=== PATIENT | female | born 1960 | race Caucasian/White ===

== ENCOUNTER 2019-09-23 11:47 | Emergency (ER) | payer OTHER ==
[~2019-09-23] VITALS: Ht 160 cm; Wt 54.4 kg
[~2019-09-23 11:47] MED LIST: ASPIR 8181 MG PO; CLONAZEPAM1 MG PO; COUMADIN5 MG PO; DIPHENOXYLATE-1 EAC2; LEVAQUIN500 MG PO; LOMOTIL TABLET1 EACH PO; METHADONE HCL10 MG PO; METOPROLOL SUCC25 MG PO; MORPHINE PO; MULTAQ400 MG PO; SERTRALINE HCL100 MG PO; TOPIRAMATE25 MG PO; XOPENEX HFA15 G1; Z DIVALPROEX SOD; Z.0.ADVAIR 100-501 E; Z.0.ALPRAZOLAM1 MG PO; Z.0.AMBIEN10 MG PO; Z.0.DEPAKOTE500 MG PO; Z.0.LASIX40 MG; Z.0.NORCO 10-325 T1 PO; Z.0.SPIRIVA18 MCG; Z.0.SPIRONOLACTONE25; Z.0.TRAZODONE HCL300 PO; Z.0.XANAX1 MG PO; Z.0.ZOLOFT100 MG PO; ZOLOFT50 MG PO; [UNRECOGNIZED DRUG - OTHER]
[2019-09-23 12:39] LABS: ABG HCO3 27 mmol/L (22-26); ABG PCO2 48 mmHg (35-45); ABG PH 7.35 (7.35-7.45); ABG PO2 71 mmHg (80-105); ABG TCO2 28
[2019-09-23] MEDS ORDERED: NALOXONE HCL INJ 0.4 MG/ML AMP ONE (12:39)
[2019-09-23] MEDS: NALOXONE HCL INJ 0.4 MG/ML AMP IV PRN ×2 (12:44→15:00)
[2019-09-23 12:55] LABS: BASOPHILS % 0.4 % (0.0-1.0); EOSINOPHILS % 0.4 % (0.0-6.0); HEMATOCRIT 40.9 % (34.2-44.1); HEMOGLOBIN 12.6 g/dL (12.0-16.0); LYMPHOCYTES # (AUTO) 0.6 (1.0-3.2); LYMPHOCYTES % 5.5 % (18.0-39.1); MEAN CORPUSCULAR HEMOGLOBIN 26.3 pg (28-32); MEAN CORPUSCULAR HGB CONC 30.8 g/dL (31-35); MEAN CORPUSCULAR VOLUME 85.4 fL (81-99); MONOCYTES # (AUTO) 0.3 (0.2-0.8); MONOCYTES % 2.7 % (4.4-11.3); NEUTROPHILS # (AUTO) 9.2 (2.1-6.9); NEUTROPHILS % 90.6 % (38.7-80.0); RED BLOOD COUNT 4.79 x10e6/uL (3.6-5.1); RED CELL DISTRIBUTION WIDTH 17.7 % (11.7-14.4)
[2019-09-23 13:08] LABS: PLATELET COUNT 192 x10e3/uL (140-360)
--- NOTE | 2019-09-23 13:12 | Diagnostic Imaging Report ---
EXAMINATION: CHEST SINGLE (PORTABLE) INDICATION: Altered mental status COMPARISON: None FINDINGS: LINES/TUBES:Left chest pacer. EKG leads overlie the chest. LUNGS:The lungs are well-inflated. Mild pulmonary interstitial edema. PLEURA:No pleural effusion or pneumothorax. MEDIASTINUM:The cardiomediastinal silhouette appears normal in size and shape. Atherosclerotic calcifications of the thoracic aorta. BONES/SOFT TISSUES:No acute osseous injury. Sternotomy wires in place. ABDOMEN:No free air under the diaphragm. IMPRESSION: Mild interstitial pulmonary edema. Signed by: Steff Thompson MD on 09/23/2019 1:08 PM
--- NOTE | 2019-09-23 13:30 | NUR ---
Pt currently in radiology receiving CT scan.
--- NOTE | 2019-09-23 13:43 | Diagnostic Imaging Report ---
Exam: Head CT without contrast History: Altered mental status Comparison studies: Head CT 05/30/2016 Technique: Axial images were obtained from the skull base to the vertex. Coronal and sagittal images reconstructed from the axial data. Dose modulation, iterative reconstruction, and/or weight based adjustment of the mA/kV was utilized to reduce the radiation dose to as low as reasonably achievable. Radiation dose: Total DLP: 921.4 mGy*cm. Estimated effective dose: DLP x 0.015 Intravenous contrast: None Findings: Scalp: No fracture or destructive lytic or blastic lesions. Bones: No fractures, blastic or lytic lesions. Brain sulci: Appropriate for age. Ventricles: Normal in size and configuration. No hydrocephalus. Extra-axial spaces: Unchanged small osteoma or exostosis along the inner table the right frontal calvarium without mass effect. No other mass or fluid collection. Parenchyma: No abnormal densities. No masses, acute hemorrhage, acute or chronic vascular insults. Sellar/suprasellar region: No abnormalities. Craniocervical junction: Patent foramen magnum. No Chiari one malformation. Included paranasal sinuses: Clear. Middle ear cavities and mastoids: Clear. IMPRESSION: 1. No acute abnormalities. 2. No changes from the prior head CT of 05/30/2016. Signed by: Dr. Dusty Rosas M.D. on 09/23/2019 1:39 PM
[2019-09-23 14:25] LABS: AMPHETAMINES SCREEN,URINE NEGATIVE (NEGATIVE); BENZODIAZEPINES SCREEN,URINE NEGATIVE (NEGATIVE); PHENCYCLIDINE SCREEN,URINE NEGATIVE (NEGATIVE)
--- NOTE | 2019-09-23 14:44 | Emergency Department Note ---
History of Present Illnes History of Present Illness Chief Complaint: Neurological History of Present Illness This is a 59 year old female arrived to the ED for AMS, pt unable to provide history. Patient noted to fentanyl patches all over her body. Chief Complaint Comment PATIENT SENT OVER BY DR. PADILLA. SAYS SHE HAS BEEN FATIGUE AND PASSING OUT. STATES SHE IS WEARING HER FENTANYL PATCH IS TAKING MORE DILAUDID THEN PRESCRIBED BUT UNSURE HOW MUCH MORE. PATIENT WITH AMS, DIFFICULT TO AROUSE, EYES CLOSED. FALLS ASLEEP MID SENTENCE. SHE WAS ABLE TO STAND AND TRANSFER FROM WHEELCHAIR TO BED Historian: Patient Arrival Mode: Car Additional Treatment [employer]: NONE Onset (how long ago): unknown Onset quality: unable to specify Progression: unchanged Chronicity: recurrent Relieving factors: none Past Medical/Family History Physician Review I have reviewed the patient's past medical and family history. Any updates have been documented here. Past Medical History Recent Fever: No Clinical Suspicion of Infectio: No New/Unexplained Change in Ment: No Past Medical History: COPD Other Medical History: MITRAL STENOSIS Past Surgical History: Pacer/AICD Other Surgery: KNEES, CARPAL TUNNEL LEFT KNEE REVISION Social History Smoking Cessation: Current every day smoker Alcohol Use: Social Review of Systems ROS Narrative Unable to obtain ROS: altered mental status Review of Systems Constitutional: Reports no symptoms EENTM: Reports no symptoms Cardiovascular: Reports no symptoms Respiratory: Reports no symptoms Gastrointestinal: Reports no symptoms Genitourinary: Reports no symptoms Musculoskeletal: Reports no symptoms Integumentary: Reports no symptoms Neurological: Reports as per HPI Psychological: Reports no symptoms Endocrine: Reports no symptoms Hematological/Lymphatic: Reports no symptoms Review of other systems: All other systems negative Physical Exam Related Data Allergies: Coded Allergies: Penicillins (Verified Allergy, 08/18/10) Triage Vital Signs Vital Signs Date Time Temp Pulse Resp B/P (MAP) Pulse Ox O2 Delivery O2 Flow Rate FiO2 09/23/19 11:58 98.2 79 16 133/88 98 Room Air Vital signs reviewed: Yes Physical Exam CONSTITUTIONAL Constitutional: Present ill appearing HENT HENT: Present normocephalic, Present atraumatic, Present oropharynx clear/moist, Present nose normal HENT L/R: Present left ext ear normal, Present right ext ear normal EYES Eyes: Reports PERRL, Reports conjunctivae normal NECK Neck: Present ROM normal PULMONARY Pulmonary: Present effort normal, Present breath sounds normal CARDIOVASCULAR Cardiovascular: Present regular rhythm, Present heart sounds normal, Present capillary refill normal, Present normal rate GASTROINTESTINAL Abdominal: Present soft, Present nontender, Present bowel sounds normal GENITOURINARY Genitourinary: Present exam deferred SKIN Skin: Present warm, Present dry MUSCULOSKELETAL Musculoskeletal: Present ROM normal NEUROLOGICAL Neurological: Present alert, Present no gross motor or sensory deficits PSYCHOLOGICAL Psychological: Absent behavior normal Results Laboratory Result Diagram: 09/23/19 1227 Laboratory Laboratory Tests Test 09/23/19 12:27 09/23/19 12:23 White Blood Count 10.19 x10e3/uL (4.8-10.8) Red Blood Count 4.79 x10e6/uL (3.6-5.1) Hemoglobin 12.6 g/dL (12.0-16.0) Hematocrit 40.9 % (34.2-44.1) Mean Corpuscular Volume 85.4 fL (81-99) Mean Corpuscular Hemoglobin 26.3 pg (28-32) Mean Corpuscular Hemoglobin Concent 30.8 g/dL (31-35) Red Cell Distribution Width 17.7 % (11.7-14.4) Platelet Count 192 x10e3/uL (140-360) Neutrophils (%) (Auto) 90.6 % (38.7-80.0) Lymphocytes (%) (Auto) 5.5 % (18.0-39.1) Monocytes (%) (Auto) 2.7 % (4.4-11.3) Eosinophils (%) (Auto) 0.4 % (0.0-6.0) Basophils (%) (Auto) 0.4 % (0.0-1.0) Neutrophils # (Auto) 9.2 (2.1-6.9) Lymphocytes # (Auto) 0.6 (1.0-3.2) Monocytes # (Auto) 0.3 (0.2-0.8) Eosinophils # (Auto) 0.0 (0.0-0.4) Basophils # (Auto) 0.0 (0.0-0.1) Absolute Immature Granulocyte (auto 0.04 x10e3/uL (0-0.1) Arterial Blood pH 7.35 (7.35-7.45) Arterial Blood Partial Pressure CO2 48 mmHg (35-45) Arterial Blood Partial Pressure O2 71 mmHg (80-105) Arterial Blood HCO3 27 mmol/L (22-26) Arterial Blood Total CO2 28 Arterial Blood Oxygen Saturation 93.0 % (95-98) Arterial Blood Base Excess 1.0 mmol/L (-2 - 3) FiO2 21 % Lab results reviewed: Yes Laboratory comments Laboratory Tests Test 09/23/19 13:58 09/23/19 12:27 09/23/19 12:23 Urine Opiates Screen Positive (NEGATIVE) Urine Methadone Screen Negative (NEGATIVE) Urine Barbiturates Screen Negative (NEGATIVE) Urine Phencyclidine Screen Negative (NEGATIVE) Urine Amphetamines Screen Negative (NEGATIVE) Urine Methamphetamines Screen Negative (NEGATIVE) Urine Benzodiazepines Screen Negative (NEGATIVE) Urine Cocaine Screen Negative (NEGATIVE) Urine Cannabinoids Screen Negative (NEGATIVE) White Blood Count 10.19 x10e3/uL (4.8-10.8) Red Blood Count 4.79 x10e6/uL (3.6-5.1) Hemoglobin 12.6 g/dL (12.0-16.0) Hematocrit 40.9 % (34.2-44.1) Mean Corpuscular Volume 85.4 fL (81-99) Mean Corpuscular Hemoglobin 26.3 pg (28-32) Mean Corpuscular Hemoglobin Concent 30.8 g/dL (31-35) Red Cell Distribution Width 17.7 % (11.7-14.4) Platelet Count 192 x10e3/uL (140-360) Neutrophils (%) (Auto) 90.6 % (38.7-80.0) Lymphocytes (%) (Auto) 5.5 % (18.0-39.1) Monocytes (%) (Auto) 2.7 % (4.4-11.3) Eosinophils (%) (Auto) 0.4 % (0.0-6.0) Basophils (%) (Auto) 0.4 % (0.0-1.0) Neutrophils # (Auto) 9.2 (2.1-6.9) Lymphocytes # (Auto) 0.6 (1.0-3.2) Monocytes # (Auto) 0.3 (0.2-0.8) Eosinophils # (Auto) 0.0 (0.0-0.4) Basophils # (Auto) 0.0 (0.0-0.1) Absolute Immature Granulocyte (auto 0.04 x10e3/uL (0-0.1) Arterial Blood pH 7.35 (7.35-7.45) Arterial Blood Partial Pressure CO2 48 mmHg (35-45) Arterial Blood Partial Pressure O2 71 mmHg (80-105) Arterial Blood HCO3 27 mmol/L (22-26) Arterial Blood Total CO2 28 Arterial Blood Oxygen Saturation 93.0 % (95-98) Arterial Blood Base Excess 1.0 mmol/L (-2 - 3) FiO2 21 % Imaging Imaging results reviewed: Yes Assessment & Plan Medical Decision Making MDM 59-year-old female arrived to the ED altered, pinpoint pupils noted. Narcan given twice. Patient responded immediately after giving Narcan. Patient noted to give 120 tablets of Dilaudid filled monthly, admits to taking 12-15 a day. Patient also on 10 fentanyl patches monthly and had multiple patches on her body on arrival. Assessment & Plan Final Impression: (1) Narcotic overdose Depart Disposition: HOME, SELF-CARE Last Vital Signs Date Time Temp Pulse Resp B/P (MAP) Pulse Ox O2 Delivery O2 Flow Rate FiO2 09/23/19 12:39 23 153/98 99 Room Air 09/23/19 11:58 98.2 79 Home Meds Reported Medications Levofloxacin (LEVAQUIN) 500 Mg Tablet, 500 MG PO DAILY, TAB 06/01/16 Topiramate (TOPIRAMATE) 25 Mg Tablet, 25 MG PO DAILY, #30 TAB 05/30/16 Diphenoxylate Hcl/Atropine (LOMOTIL TABLET) 1 Each Tablet, 2 TAB PO QID PRN for DIARRHEA 05/30/16 Metoprolol Succinate (METOPROLOL SUCCINATE) 25 Mg Tab.er.24h, 25 MG PO DAILY 05/30/16 Aspirin (ASPIR 81) 81 Mg Tablet.dr, 81 MG PO DAILY 05/30/16 Sertraline Hcl (SERTRALINE HCL) 100 Mg Tablet, 200 MG PO DAILY, TAB 05/30/16 Dronedarone Hydrochloride (MULTAQ) 400 Mg Tablet, 400 MG PO DAILY, #60 TAB 05/30/16 Clonazepam (CLONAZEPAM) 1 Mg Tablet, 2 MG PO TID, TAB 05/30/16 Warfarin Sodium (COUMADIN) 5 Mg Tablet, 5 MG PO 1700, #7 TAB 05/30/16 Methadone Hcl (METHADONE HCL) 10 Mg Tablet, 20 MG PO Q8HR 4/7/17 Trazodone Hcl (Trazodone Hcl) 300 Mg Tablet, 1 TAB PO QHS 08/18/10 Medications in the ED Naloxone HCl 0.4 mg STK-MED ONCE .ROUTE ; Start 09/23/19 at 12:39; Stop 09/23/19 at 12:33; Status DC Naloxone HCl 0.4 mg PRN PRN IV OVERSEDATION Last administered on 09/23/19at 12:44; Admin Dose 0.4 MG; Start 09/23/19 at 13:00; Stop 10/23/19 at 12:59 JOEL CHANEY DO Sep 23, 2019 14:44
[2019-09-23] MEDS ORDERED: NALOXONE HCL INJ 0.4 MG/ML AMP IV PRN (15:00)
--- NOTE | 2019-09-23 16:30 | NUR ---
redraw on initial chemistry peformed and sent to lab.
[2019-09-23 16:51] LABS: ALANINE AMINOTRANSFERASE 19 IU/L (0-55); ALBUMIN 3.4 g/dL (3.5-5.0); ALBUMIN/GLOBULIN RATIO 1.1 (0.8-2.0); ALKALINE PHOSPHATASE 99 IU/L (40-150); BLOOD UREA NITROGEN 8 mg/dL (7-26); BUN/CREATININE RATIO 13 (6-25); CALCIUM 8.8 mg/dL (8.4-10.2); CARBON DIOXIDE 25 mmol/L (22-29); CHLORIDE 103 mmol/L (98-107); CREATINE KINASE 77 IU/L (29-168); CREATININE, SERUM 0.61 mg/dL (0.57-1.11); EST GLOMERULAR FILTRATION RATE > 60 ML/MIN (60-); GLUCOSE 107 mg/dL (74-118); SODIUM 139 mmol/L (136-145)
[2019-09-23 17:35] LABS: SALICYLATE < 5.0 mg/dL (0-30)
--- OUTSIDE RECORDS SUMMARY | 2019-09-23 21:34 | XMS REPORT | Summary of Care ---
Author Author [facility] Outpatient Imaging - [facility] Organization [facility] Outpatient Imaging - [facility] Address Unknown Phone Unavailable Encounter HQ Encntr_[email or web address](FIN) [id number] Date(s): 06/15/15 - 06/15/15 [facility] Outpatient Imaging - [address] [id number] [phone] Discharge Disposition: Home Attending Physician: Maria Luz Moya MD Vital Signs No data available for this section Problem List No data available for this section Allergies, Adverse Reactions, Alerts No data available for this section Medications No data available for this section Results No data available for this section Immunizations No data available for this section Procedures No data available for this section Social History No data available for this section Assessment and Plan No data available for this section
--- OUTSIDE RECORDS SUMMARY | 2019-09-23 21:34 | XMS REPORT | Clinical Summary ---
Author Author [facility] Address Unknown Phone Unavailable Care Team Providers Care Production Supervisor Off Shift Name Role Phone Reji Hassan MD PCP Allergies Comments Active Allergy Reactions Severity Noted Date Enoxaparin Hives 11/12/2017 Pregabalin Anaphylaxis High 05/05/2019 Pt stated she felt like she lost her mind and had lost her memory for a short time along with hallucinations Methadone Hallucination High 05/05/2019 s Pass out Penicillins 12/18/2015 Pt stated she was told not to take per her Cariologist Acetaminophen Other (See 05/05/2019 Comments) Medications End Date Status Medication Sig Dispensed Refills Start Date Active dronedarone (MULTAQ) 400 Take 400 mg 0 mg tablet by mouth daily. Active traZODone (DESYREL) 100 Take 150 mg 0 MG tablet by mouth nightly. Active fentaNYL (DURAGESIC) 50 Place 1 patch 0 mcg/hr on the skin every third day. Active aspirin (ECOTRIN) 81 MG Take 81 mg by 0 enteric coated tablet mouth daily. Active warfarin (COUMADIN) 7.5 Take 7.5 mg 0 MG tablet by mouth daily. On HOLD since 11/04/17, because Pt. Is having surgery on 11/10/17. Active busPIRone (BUSPAR) 15 MG Take 15 mg by 0 tablet mouth 3 (three) times a day. Active metoprolol tartrate Take 12.5 mg 0 (LOPRESSOR) 25 mg tablet by mouth daily. Active baclofen (LIORESAL) 10 MG Take 10 mg by 0 tablet mouth 3 (three) times a day. Active spironolactone Take 25 mg by 0 (ALDACTONE) 25 MG tablet mouth daily. Active sertraline (ZOLOFT) 100 Take 100 mg 0 MG tablet by mouth daily. Active hydromorPHONE (DILAUDID) Take 2 mg by 0 2 MG tabletIndications: mouth every 4 acute pain (four) hours as needed .acute pain. Active eszopiclone (LUNESTA Take 4 mg by 0 ORAL) mouth nightly. Active ondansetron (ZOFRAN) 4 MG Take 4 mg by 0 tablet mouth every 8 (eight) hours as needed for nausea or vomiting. 04/12/2019 Discontinued HYDROcodone-acetaminophen Take 1 tablet 0 (NORCO 10-325) 10-325 mg by mouth per tablet every 6 (six) hours as needed for moderate pain. 04/12/2019 Discontinued topiramate (TOPAMAX) 25 Take 25 mg by 0 MG tablet mouth 4 (four) times a day. 04/12/2019 Discontinued cholestyramine (QUESTRAN) Take 1 packet 0 4 gram packet by mouth as needed. 04/12/2019 Discontinued mirtazapine (REMERON) 30 Take 30 mg by 0 MG tablet mouth nightly. 04/12/2019 Discontinued DULoxetine (CYMBALTA) 60 Take 60 mg by 0 MG capsule mouth 2 (two) times a day. Active Problems Problem Noted Date Instability of internal left knee prosthesis 020 S/P MVR (mitral valve replacement) 11/10/2017 S/P Maze operation for atrial fibrillation 8 Pulmonary hypertension due to mitral valve disease an d COPD 11/10/2017 COPD, mild 11/10/2017 History of chronic back pain 11/10/2017 Smokes 1 pack of cigarettes per day 11/10/2017 Shortness of breath 11/09/2017 SSS (sick sinus syndrome) 10/08/2015 Encounters Care Team Description Date Type Specialty Marisa Nix MD Berry, Madie Yao MD 05/05/2019 Anesthesia Orthopedic Surgery Event Angela Burgos MD LEFT TKA REVISION 2 COMPONENTS, PARTIAL EXCISION PROXIMAL TIBIA, COMPLEX WOUND CLOSURE 05/05/2019 Surgery Orthopedic Surgery Angela Burgos MD Instability of internal left knee prosth esis, initial encounter (HCC); Presence of left artificial knee joint; Hypertrophic scar 05/05/2019 Hospital Orthopedic Surgery - Encounter 05/06/2019 05/05/2019 Travel Angela Burgos MD Preop testing (Primary Dx) 04/12/2019 Pre-Admit Pre-Admission Testi ng Testing Appointment Bonnie Wong 10/18/2018 Telephone Ophthalmology after 09/22/2018 Family History Medical History Relation Name Comments Stroke Brother Stroke Father Heart disease Mother Stroke Mother Relation Name Status Comments Brother Father Mother Social History Date Tobacco Use Types Packs/Day Years Used Current Every Day Smoker Cigarettes 1 45 Smokeless Tobacco: Never Used Tobacco Cessation: Ready to Quit: Yes; C ounseling Given: Yes Drinks/Week oz/Week Comments Alcohol Use No Sex Assigned at Date Recorded Not on file Industry Job Start Date Occupation Not on file Not on file Not on file Travel End Travel History Travel Start No recent travel history available. Last Filed Vital Signs Reading Time Taken Comments Vital Sign 108/59 05/06/2019 11:28 AM CDT Blood Pressure 92 05/06/2019 11:28 AM CDT Pulse 36.1 C (97 F) 05/06/2019 11:28 AM CDT Temperature 17 05/06/2019 11:28 AM CDT Respiratory Rate 97% 05/06/2019 11:28 AM CDT Oxygen Saturation - - Inhaled Oxygen Concentration 50.2 kg (110 lb 11.2 oz) 05/05/2019 8:38 AM CDT Weight 160 cm (5' 3") 05/05/2019 8:38 AM CDT Height 19.61 05/05/2019 8:38 AM CDT Body Mass Index Plan of Treatment Health Maintenance Due Date Last Done Comments CERVICAL CANCER SCREENING 08/09/1979 BREAST CANCER SCREENING 2008 COLONOSCOPY SCREENING 2008 SHINGLES VACCINES (#1) 2008 INFLUENZA VACCINE 09/24/2019 Implants Device Identifier Shelf Expiration Date Model / Serial / L ot Implanted Type Area Manufactur er 07/23/2020 [id number] / / [id number] Cement Bone 40gr Smartset Mv Bone Screw N/A: N/A D EPUY Endurance - [id number] ORTHO-KNEE Implanted: 05/05/2019 at [facility] (Quantity not on file) 07/23/2020 [id number] / / [id number] Cement Bone 40gr Smartset Mv Bone Screw N/A: N/A D EPUY Endurance - [id number] ORTHO-KNEE Implanted: 05/05/2019 at [facility] (Quantity not on file) 09/10/2019 [id number] / / Lead Pace Dorian Mycrdl Unipol Tmpry Cardiac N/A: N/A MEDTRONIC Streamline - [id number] Pacing [place] - Implanted: Qty: 2 on 11/10/2017 by Leads or CAR aKmar Gutierrez MD at [facility] or [facility] 06/18/2020 E100 25M 00 / [id number] / [id number] Valve Mitral Stntd Tiss Annls W/ Cardiovasc N/A: N/A ST KALI Linx Ac Tech 25mm Epic - ular STRUCTURAL [id number] - [id number] Implants HE ART Implanted: Qty: 1 on 11/10/2017 by Kamar Díaz MD at [facility] 06/22/2017 350 [id number] / [id number] / [id number] Setrox S Steroid-Eluting Bipolar IPM N/A: N/A BIOTRONIK, Implantable Endocardial Bradycardia IMPLANT IN C. Lead With Active Fixation DEVICES Electrically Active [place] 1.8mm Connector Is-1 Straight Ring Electrode Insulation Silicon Rubber 6.6fr 6.7fr Steroid [place] Setrox S 53 10mm 45/53/60cm - [id number] - [id number] Implanted: Qty: 1 on 10/08/2015 by Reji Hassan MD at [facility] 06/22/2017 350 974 / [id number] / [id number] Setrox S Steroid-Eluting Bipolar IPM N/A: N/A BIOTRONIK, Implantable Endocardial Bradycardia IMPLANT IN C. Lead With Active Fixation DEVICES Electrically Active [place] 1.8mm Connector Is-1 Straight Ring Electrode Insulation Silicon Rubber 6.6fr 6.7fr Steroid [place] Setrox S 53 10mm 45/53/60cm - [id number] - [id number] Implanted: Qty: 1 on 10/08/2015 by Reji Hassan MD at [facility] 12/23/2016 [id number] / [id number] / [id number] Jonh Goss With Cls With IPM N/A: N/A BIOTRONIK, Home Monitoring - [id number] - [employer] [id number] Implanted: Qty: 1 on 10/08/2015 by Reji Hassan MD at [facility] / / [facility] - [id number] IPM N/A: N/A MEDTRON IC Implanted: Qty: 1 on 10/08/2015 by ALTHIA Mo HUYNH Thomas E., MD at [facility] PATIENT IN C. BILLABLE 7 / / [facility] - [id number] IPM N/A: N/A MEDTRON IC Implanted: Qty: 1 on 10/08/2015 by tagUinMo Thomas E., MD at [facility] PATIENT IN C. BILLABLE 11/23/2023 [id number] / / [id number] Plate Tib Rotng Hinge Nmodlr Sz 2 Knee Joint N/A: N/A [employer] Nexgen - [id number] Implants Implanted: Qty: 1 on 05/05/2019 by Angela Burgos MD at [facility] 06/23/2023 [id number] / / [id number] Component Feml Left Rhk Size D Knee Joint N/A: N/A [employer] Nexgen - [id number] Implants Implanted: Qty: 1 on 05/05/2019 by Angela Burgos MD at [facility] 08/22/2028 [id number] / / [id number] Augment Fml Block Distl P-Coat Sz D Knee Joint N/A: N/A [employer] Tivn Pmma 5mm Strl - [id number] Implants Implanted: Qty: 1 on 05/05/2019 by Angela Burgos MD at [facility] 12/23/2028 [id number] / / [id number] Augment Fml Block Distl P-Coat Sz D Knee Joint N/A: N/A [employer] Tivn Pmma 5mm Strl - [id number] Implants Implanted: Qty: 1 on 05/05/2019 by Angela Burgos MD at [facility] 10/24/2027 [id number] / / [id number] Extension Stem Str [id number] (30mm) Knee Joint N/A: N/A [employer] Nexgen - [id number] Implants Implanted: Qty: 1 on 05/05/2019 by Angela Burgos MD at [facility] 09/22/2022 [id number] / / [id number] Surface Artclr Rhk Sz D 20mm Strl Knee Joint N/A: N/A [employer] Nexgen - [id number] Implants Implanted: Qty: 1 on 05/05/2019 by Angela Burgos MD at [facility] 04/14/2022 [id number] / / Clip Ligtng Weck Hemoclip Plus W/ Medical N/A: N/A TELEFLEX Tape Ti Lg - [id number] Clips for MEDICAL Implanted: Qty: 1 on 11/10/2017 by Internal Kamar Díaz MD at [facility] Pacemaker Pacemaker Description:Biotronic Was implanted in 201507/20/2022 [id number] / / [id number] [facility] Vasclr Ptfe 1.2x10cm Vascular N/A: N/A BARD 1.65mm - [id number] Graft PERIPHERAL Implanted: 11/10/2017 at [facility] (Quantity not on file) Procedures Comments Procedure Name Priority Date/Time Associated Diag nosis ESTIMATED GFR Routine 05/06/2019 5:00 AM CDT PROTHROMBIN TIME WITH INR Routine 05/06/2019 5:00 AM CDT BASIC METABOLIC PANEL Routine 05/06/2019 5:00 AM CDT HC COMPLETE BLD COUNT Routine 05/06/2019 W/AUTO DIFF 5:00 AM CDT POC GLUCOSE Routine 05/05/2019 1:29 PM CDT XR KNEE 1 OR 2 VW LEFT Routine 05/05/2019 1:20 PM CDT SURGICAL PATHOLOGY Routine 05/05/2019 REQUEST 12:[address] AN ELECTIVE Routine 05/05/2019 ENDOTRACHEAL AIRWAY 10:38 AM CDT ARTERIAL LINE Routine 05/05/2019 10:28 AM CDT REVISION, ARTHROPLASTY, 05/05/2019 Instability o f internal KNEE 10:12 AM CDT left knee prosthesi s, initial encounter (HCC) Presence of left artificial knee joint Hypertrophic scar Case Notes TF ~ 1000, REQ 0730 START, EST 2HRS, @ 0947 VIA ACTIVE FAX R/S FROM 04/07 TO 04/14-TW, @ 1402 SANTOS R/S FROM CANCELLATI ON 04/27/19TW Special Needs TF ~ 1000, REQ 0730 START, EST 2HRS, REGULAR BED, DR BURGOS OR SKY RETRACTORS , SALVADOR RHK, #1 PDS X 2, #2 QUILL X 1, 2/0 MONOCRYL CP 1 X 3, 3/0 MONOCRYL PS1 X 1, LARGE THICK COTTON ROLL, DOUBLE LONG JUAN MIGUEL BANDAGE, KNEE IMMOBILIZE R, ACL (SKY) SAW BLADE , BIG WIDE SAW BLADE TYPE AND SCREEN STAT 05/05/2019 8:32 AM CDT PARTIAL THROMBOPLASTIN STAT 05/05/2019 TIME (PTT) 8:32 AM CDT PROTHROMBIN TIME WITH INR STAT 05/05/2019 8:32 AM CDT POC GLUCOSE Routine 05/05/2019 8:02 AM CDT URINE CULTURE Routine 04/12/2019 11:24 AM SOLID PROPELLANT PROCESSOR ECG PRE/POST OP Routine 04/12/2019 Preop testing 11:07 AM SOLID PROPELLANT PROCESSOR ESTIMATED GFR Routine 04/12/2019 10:58 AM SOLID PROPELLANT PROCESSOR HC COMPLETE BLD COUNT Routine 04/12/2019 Preop te sting W/AUTO DIFF 10:58 AM SOLID PROPELLANT PROCESSOR COMPREHENSIVE METABOLIC Routine 04/12/2019 Preop testing PANEL 10:58 AM SOLID PROPELLANT PROCESSOR HEMOGLOBIN A1C Routine 04/12/2019 Preop testing 10:58 AM SOLID PROPELLANT PROCESSOR TYPE AND SCREEN Routine 04/12/2019 Preop testing 10:58 AM SOLID PROPELLANT PROCESSOR URINALYSIS SCREEN AND Routine 04/12/2019 Preop te sting MICROSCOPY, WITH REFLEX 10:58 AM SOLID PROPELLANT PROCESSOR TO CULTURE PARTIAL THROMBOPLASTIN Routine 04/12/2019 Preop t esting TIME (PTT) 10:58 AM SOLID PROPELLANT PROCESSOR PROTHROMBIN TIME WITH INR Routine 04/12/2019 Preo p testing 10:58 AM SOLID PROPELLANT PROCESSOR MRSA SCREEN CULTURE Routine 04/12/2019 Preop test ing 10:58 AM SOLID PROPELLANT PROCESSOR after 09/22/2018 Results * Estimated GFR (05/06/2019 5:00 AM CDT) Only the most recent of 2 results within the time period is included. [facility] [address] Estimated GFR >=90 mL/min/1.73 m2 [place] Comment: [facility] [place] Interpretation G1 >=90 Normal or high G2 60-89 Mildly decreased G3a 45-59 Mildly to moderately decreased G3b 30-44 Moderately to severely decreased G4 15-29 Severely decreased G5 <15 Kidney failure The eGFR was calculated using the Chronic Kidney Disease Epidemiology Collaboration (CKD-EPI) equation. Interpretation is based on recommendations of the National Kidney Foundation-Kidney Disease Outcomes Quality Initiative (NKF-KDOQI) published in 2014. Specimen Plasma specimen Performing Organization Address City/[facility] Ph one Number [facility] DEPARTMENT OF [address] [place] [address] PATHOLOGY AND [facility] MEDICINE [address] * Prothrombin time with INR (05/06/2019 5:00 AM CDT) Only the most recent of 3 results within the time period is included. [facility] [address] Prothrombin 15.1 (H) 11.5 - 14.5 sec [facility] INR 1.2 [place] Comment: [employer] The International Normalized HOSPITAL Ratio (INR) is a therapeutic monitoring tool for patients who are stable on oral anticoagulant therapy. An INR of 2.0-3.0 is suggested for deep vein thrombosis/pulmonary embolism. Specimen Blood Performing Organization Address City/[facility] Ph one Number [facility] DEPARTMENT OF [address] [place] [address] PATHOLOGY AND [facility] MEDICINE [address] * CBC with platelet and differential (05/06/2019 5:00 AM CDT) Only the most recent of 2 results within the time period is included. WBC 10.04 4.50 - 11.00 k/uL [facility] RBC 3.64 (L) 4.20 - 5.50 m/uL [facility] HGB 9.9 (L) 12.0 - 16.0 g/dL [facility] HCT 31.7 (L) 37.0 - 47.0 % [facility] MCV 87.1 82.0 - 100.0 fL [facility] MCH 27.2 27.0 - 34.0 pg [facility] MCHC 31.2 31.0 - 37.0 g/dL [facility] RDW - SD 54.4 37.0 - 55.0 fL [facility] MPV 10.4 8.8 - 13.2 fL [facility] Platelet count 187 150 - 400 k/uL [facility] Nucleated RBC 0.00 /100 WBC [facility] Neutrophils 73.6 (H) 39.0 - 69.0 % [facility] Lymphocytes 13.0 (L) 25.0 - 45.0 % [facility] Monocytes 11.6 (H) 0.0 - 10.0 % [facility] Eosinophils 0.8 0.0 - 5.0 % [facility] Basophils 0.7 0.0 - 1.0 % [facility] Immature 0.3Comment: "Immature 0.0 - 1.0 % [place] granulocytes granulocytes" (promyelocytes, METHOD IST myelocytes, metamyelocytes) HOSPITAL Specimen Blood Performing Organization Address City/State/[place] Ph one Number [facility] DEPARTMENT OF [address] [place] [address] PATHOLOGY AND GENOMIC MEDICINE [address] * Basic metabolic panel (05/06/2019 5:00 AM CDT) Sodium 136 135 - 148 mEq/L [facility] Potassium 3.5 3.5 - 5.0 mEq/L [facility] Chloride 100 98 - 112 mEq/L [facility] CO2 22 (L) 24 - 31 mEq/L [facility] Anion gap 14@ANIO 7 - 15 mEq/L [facility] BUN 6 (L) 8 - 23 mg/dL [facility] Creatinine 0.48 (L) 0.50 - 0.90 mg/dL [facility] Glucose 119 (H) 65 - 99 mg/dL [facility] Calcium 8.8 8.8 - 10.2 mg/dL [facility] Specimen Plasma specimen Performing Organization Address City/State/Zipcode Ph one Number [facility] DEPARTMENT OF [address] [place] [address] PATHOLOGY AND GENOMIC MEDICINE [address] * POC glucose (05/05/2019 1:29 PM CDT) Only the most recent of 2 results within the time period is included. POC glucose 153 (H) 65 - 99 mg/dL [place] Comment: [employer] Executive Administrative Assistant Name: [facility] Device ID: [id number] Chartable: [facility] Notified RN Specimen Performing Organization Address City/[facility] Ph one Number [facility] DEPARTMENT OF [address] [place] [address] PATHOLOGY AND GENOMIC MEDICINE [address] * XR Knee 1 Or 2 Vw Left (05/05/2019 1:20 PM CDT) Specimen Narrative Performed At EXAMINATION: XR KNEE 1 OR 2 VW LEFT [facility] CLINICAL HISTORY: Knee replaced asy mptomatic follow up, total knee arthoplasty COMPARISON: None. IMPRESSION: There is no evidence of left knee fract ure, dislocation, or joint effusion. Bones are osteopenic. Total knee re placement is seen. Subcutaneous gas is present. [id number] Procedure Note Hm Interface, Radiology Results Incoming - 05/05/2019 2:03 PM CDT EXAMINATION: XR KNEE 1 OR 2 VW LEFT CLINICAL HISTORY: Knee replaced asymptomatic follow up, total knee arthoplasty COMPARISON: None. IMPRESSION: There is no evidence of left knee fracture, dislocation, or joint effusion. Bones are osteopenic. Total knee replacement is seen. Subcutaneous gas is present. [id number] Performing Organization Address City/[facility] Ph one Number [facility] [address] [place] [address] * Surgical pathology request (05/05/2019 12:51 PM CDT) [facility] DEPARTMENT OF PATHOLOGY AND GENOMIC MEDICINE Surgical See link below for PDF Lab [facility] DEPART [facility] pathology Report OF PATHOLOGY report AND GENOMIC MEDICINE Result status This is Final Report for [facility] DEPARTUT NT [id number] OF PATHOLOGY AND GENOMIC MEDICINE Specimen Performing Organization Address City/State/Zipcode Ph one Number [facility] DEPARTMENT OF [address] [place] [address] PATHOLOGY AND GENOMIC MEDICINE * Airway (05/05/2019 10:38 AM CDT) Narrative Performed At Jerald Calderon CRNA 10:39 AM Airway Date/Time: 05/05/2019 10:21 AM Performed by: Jerald Calderon CRN A Authorized by: Marisa Nix M D Location: OR Urgency: Elective Difficult Airway: No Anesthesiologist: Marisa Nix MD Resident/CATHETER BUILDER/AA: Jerald Calderon Performed by: resident/CATHETER BUILDER/AA Preoxygenated with 100% O2: Yes Mask Ventilation: Assisted mask Final Airway Type: Endotracheal airwa y Final Endotracheal Airway: ETT Cuffed: Yes Technique Used: Direct laryngoscopy Devices/Methods Used in Placement: In tubating stylet Insertion Site: Oral Blade Type: Barron Laryngoscope Blade/Videolaryngoscope Bl yohana Size: 2 ETT Size (mm): 7.0 Cuff at minimum occlusion pressure: Yes Measured from: Lips ETT to Lips (cm): 19 Placement Verified by: CO2 detection, d irect visualization and equal breath sounds Laryngoscopic view: Grade I - full vi ew of glottis Rapid Sequence Induction (RSI): No Modified RSI: No Number of Attempts at Approach: 1 Cords clear, ett easily advanced, atrau matic, oral structures/dentition/lips remain unchan ged * Arterial line (05/05/2019 10:28 AM CDT) Narrative Performed At Jerald Calderon CRNA 10:29 AM Arterial line Performed by: Marisa Nix MD Authorized by: Marisa Nix M D Patient Location: OR Start Time: 05/05/2019 10:22 AM End Time: 05/05/2019 10:26 AM Pre-procedure: patient identified, IV c hecked, site and side verified, risks and benefits discussed, procedure verified, surgical consent complete, patient position confirmed, m onitors and equipment checked and pre-op evaluation complete MSBT: antiseptic used and hand hygiene performed TIme Out Performed: 05/05/2019 10:19 A M Indications: Indications: multiple ABGs and hemody namic monitoring Anesthesia: Anesthesia: General Procedure Details: Arterial Line placement: Placed pos t induction Line placement site: Radial Line placement side: Right Arterial line gauge: 20 G Number of attempts: 1 Ultrasound guidance used: No Post-procedure: Post-procedure: Sterile dressing ap plied Post procedure circulation, sensation , movement: Unchanged Patient tolerance: Patient tolerate d the procedure well with no immediate complications * Partial thromboplastin time, activated (05/05/2019 8:32 AM CDT) Only the most recent of 2 results within the time period is included. PTT 28.5 23.0 - 36.0 sec [place] Comment: [employer] PTT therapeutic range for [facility] unfractionated heparin is 61.0-112.0 seconds which corresponds to Anti-Xa 0.3-0.7 U/ml. Specimen Blood Performing Organization Address [facility] one Number [facility] DEPARTMENT OF [address] [place] [address] PATHOLOGY AND [facility] MEDICINE [address] * Type and screen (05/05/2019 8:32 AM CDT) Only the most recent of 2 results within the time period is included. Pathologist [facility] ABO grouping A [facility] Rh type POS [facility] Antibody screen NEG [place] (gel) [facility] Specimen Blood Performing Organization Address [facility] one Number [facility] DEPARTMENT OF [address] [place] [address] PATHOLOGY AND GENOMIC MEDICINE [address] * Urine culture (04/12/2019 11:24 AM SOLID PROPELLANT PROCESSOR) Pathologist [facility] Urine culture SEE COMMENTComment: [place] Bacteriuria screen negative. [facility] Specimen Performing Organization Address [facility] one Number [facility] DEPARTMENT OF [address] [place] [address] PATHOLOGY AND GENOMIC MEDICINE [address] * ECG Pre/Post Op (04/12/2019 11:07 AM SOLID PROPELLANT PROCESSOR) Ventricular 94 [facility] MUSE rate Atrial rate [address] interval 176 H MUSE QRSD interval 82 [facility] MUSE QT interval 386 [facility] MUSE QTC interval 482 [facility] MUSE P axis 1 79 [facility] MUSE QRS axis 1 46 [facility] MUSE T wave axis 85 [facility] MUSE EKG impression Normal sinus rhythm-Prolonged [facility] MUS E QT-Abnormal ECG- Specimen Narrative Performed At This result has an attachment that is n ot available. Performing Organization Address City/[facility] [place] [address] * Urinalysis screen and microscopy, with reflex to culture (04/12/2019 10:58 AM SOLID PROPELLANT PROCESSOR) Specimen site Clean catch [facility] Color, UA Straw [facility] Appearance, UA Clear [facility] Specific 1.006 1.001 - 1.035 [place] gravity, [facility] pH, UA 6.0 5.0 - 8.5 [facility] Protein, UA Negative Negative [facility] Glucose, UA Negative Negative [facility] Ketones, UA Negative Negative [facility] Bilirubin, UA Negative Negative [facility] Blood, UA Small (A) Negative [facility] Nitrite, UA Negative Negative [facility] Urobilinogen, <2.0 <2.0 [facility] Leukocyte Negative Negative [place] esterase, [facility] Epithelial 2 /HPF [place] cells, [facility] WBC, UA <1 0 - 4 /HPF [facility] RBC, UA 1 0 - 5 /HPF [facility] Bacteria, UA Few None seen [facility] Yeast, UA None seen [facility] Yeast with None seen [place] [facility] Specimen Urine Performing Organization Address City/State/[facility] Ph one Number [facility] DEPARTMENT OF [address] [place] [id number] PATHOLOGY AND GENOMIC MEDICINE [id number] [place] [address] * MRSA screen culture (04/12/2019 10:58 AM SOLID PROPELLANT PROCESSOR) MRSA screen No Methicillin Resistant [place] culture isolate Staphylococcus aureus [facility] isolated. [facility]OS[facility]ITAL Comment: Specimen Information Specimen Source: Nares Specimen Site: Specimen Nares Performing Organization Address [facility] Number [facility] DEPARTMENT OF [address] [place] [address] PATHOLOGY AND GENOMIC MEDICINE [address] * Hemoglobin A1c (04/12/2019 10:58 AM SOLID PROPELLANT PROCESSOR) Hemoglobin A1C 6.0 (H) 4.0 - 5.6 % [place] Comment: [facility] HbA1c cutoffs for diagnosing HOSPITAL diabetes: 4.0% - 5.6% = normal 5.7% - 6.4% = increased risk for diabetes (prediabetes)9 >=6.5% = diabetes9 Goals for glycemic control (ADA 2016) < 7.0% Target for non adults with diabetes. More or less stringent targets may be appropriate for individual patients. <7.5% Target for Children and adolescents with type 1 diabetes. Angelique Fabian [facility] Organization Address City/State/[facility] Ph one Number [facility] DEPARTMENT OF [address] [place] [address] PATHOLOGY AND GENOMIC MEDICINE [address] * Comprehensive metabolic panel (04/12/2019 10:58 AM SOLID PROPELLANT PROCESSOR) Sodium 132 (L) 135 - 148 mEq/L [facility] Potassium 4.2 3.5 - 5.0 mEq/L [facility] Chloride 95 (L) 98 - 112 mEq/L [facility] CO2 26 24 - 31 mEq/L [facility] Anion gap 11@ANIO 7 - 15 mEq/L [facility] BUN 9 8 - 23 mg/dL [facility] Creatinine 0.63 0.50 - 0.90 mg/dL [facility] Glucose 107 (H) 65 - 99 mg/dL [facility] Calcium 9.4 8.8 - 10.2 mg/dL [facility] Protein 7.1 6.3 - 8.3 g/dL [place] Comment: [facility] Yqchggc7434.6-7.0 g/dL HOSPITAL 1 fttp7189.4-7.6 g/dL 7 months-3wurz157.1-7.3 g/dL 1-2 haxwj407.6-7.5 g/dL >3 .0-8.0 g/dL 18-8614726.3-8.3 g/dL Albumin 3.9 3.5 - 5.0 g/dL [facility] A/G ratio 1.2 0.7 - 3.8 [facility] Alkaline 125 (H) 35 - 104 U/L [place] phosphatase [facility] AST 25 10 - 35 U/L [facility] ALT 39 5 - 50 U/L [facility] Total bilirubin 0.6 0.0 - 1.2 mg/dL [facility] Specimen Plasma specimen Performing Organization Address City/State/Zipcode Ph one Number [facility] DEPARTMENT OF [address] [place] [id number] PATHOLOGY AND GENOMIC MEDICINE [address] [address] HOSPITAL after 09/22/2018 Insurance Type Payer Benefit Subscriber ID Effective Phone Address Plan / Dates Group Workers Comp WORKERS COMP DEPT OF xxxxxxxxx 1989 LABOR -Present HMO/O [facility] GEHA/UNITE xxxxxxxxxxxx [id number] [employer] E Advance Directives For more information, please contact: [phone] Patient Criminal Justice Instructor Explanation Type Date Recorded Advance Directives, Living Will and Medical Power of Dot Compliance Specialist Date Inactivated Comments Code Status Date Activated 11/16/2017 3:06 PM Full Code 11/10/2017 3:15 PM Code Status decision reached by: Patient
--- OUTSIDE RECORDS SUMMARY | 2019-09-23 21:34 | XMS REPORT | Continuity of Care Document ---
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 Avoid large intake of vitamin-K containing foods diet. WASTE: F/P - P Waste Black; E - P Waste Black (Same As: Coumadin) No Longer Active 03/15/2019 [facility] Dilaudid Notes: (Same as: Dila udid) Inactive 03/15/2019 [facility] Lovenox 52.273 mg, Route: SUB- Q, Drug form: INJ, [id number], Dosing Weight 52.273, kg, Start date: 03/15/19 11:00:00 BOOK CUTTER, Duration: 30 day, Stop date: 04/13/19 23:00:00 BOOK CUTTER Inactive 03/15/2019 [facility] Aspirin Notes: Take with food. No Longer Active 03/15/2019 [facility] Buspirone Notes: (Same As: BuS par) No Longer Active 03/15/2019 [facility] Multaq Notes: Same as: Multaq No Longer Active 03/15/2019 [facility] metoprolol tartrate Notes: (Sa me as: Lopressor) No Longer Active 03/15/2019 [facility] Zoloft Notes: (Same as: Zoloft) No Longer Active 03/15/2019 [facility] Aldactone Notes: (Same As: Ald actone) No Longer Active 03/15/2019 [facility] Omnipaque 350 injectable solution Notes: (same as:Omnipaque 350). WASTE: F/P - Black; E - Municipal Trash Bin No Longer Active 03/15/2019 [facility] *RN* pls bring pt's own Lunesta to pharmacy for label *RN* pls bring pt's own Lunesta to pharmacy for label, attn, Drug form: MISC, Route: MISC, QSHIFT, 03/15/19 0:00:00 BOOK CUTTER, Duration: 30 day, Stop date: 04/13/19 16:00:00 BOOK CUTTER, 0 No Longer Active 03/15/2019 [facility] zolpidem Notes: (Same As: Ambi en) No Longer Active 03/15/2019 [facility] Saline Flush 0.9% Notes: prese rvative free. No Longer Active 03/15/2019 [facility] Trazodone Notes: (Same As: Antoni yrel) No Longer Active 03/15/2019 [facility] Lunesta 2 mg, 1 tab, Route: PO , Drug form: TAB, Bedtime, Dosing Weight 52.273, kg, PRN Insomnia, Start date: 03/14/19 19:50:00 BOOK CUTTER, Duration: 30 day, Stop date: 04/13/19 19:49:00 BOOK CUTTER Inactive 03/15/2019 [facility] Aspirin 81 mg, PO, Daily, 0 Re fill(s) Active 03/15/2019 [facility] Zoloft 100 mg, PO, Daily, 0 Re fill(s) Active 03/15/2019 [facility] Spironolactone 25 MG Oral Tablet [Aldactone] 25 mg = 1 tab, PO, BID, 0 Refill(s) Active 03/15/2019 [facility] dronedarone 400 MG Oral Tablet [Multaq] 400 mg = 1 tab, PO, Daily, 0 Refill(s) Active 03/15/2019 [facility] Dilaudid 100.4 F, 0 Refill(s) Active 03/15/2019 [facility] baclofen 10 mg oral tablet 10 mg = 1 tab, PO, TID, 0 Refill(s) Active 03/15/2019 [facility] warfarin 7.5 mg oral tablet 7. 5 mg = 1 tab, PO, Daily, 0 Refill(s) Active 03/15/2019 [facility] Eszopiclone 2 MG Oral Tablet [Lunesta] 2 mg = 1 tab, PO, Bedtime, PRN for insomnia, # 30 tab, 0 Refill(s) Active 03/15/2019 [facility] metoprolol tartrate 25 mg oral tablet 25 mg = 1 tab, PO, Daily, 0 Refill(s) Active 03/15/2019 [facility] trazodone 150 mg oral tablet 1 50 mg = 1 tab, PO, Bedtime, 0 Refill(s) Active 03/15/2019 [facility] Zofran 0 Refill(s) Active 03/15/2019 [facility] Ondansetron 4 MG Oral Tablet [Zofran] 4 mg = 1 tab, PO, Q8H, PRN Nausea, 0 Refill(s) Active 03/15/2019 [facility] busPIRone 15 mg oral tablet 15 mg = 1 tab, PO, TID, 0 Refill(s) Active 03/15/2019 [facility] fentaNYL 50 mcg/hr transdermal film, extended release TOP, Q72H, 0 Refill(s) Active 03/15/2019 [facility] Sodium Chloride 0.9% IV 1,000 mL 1,000 mL, Rate: 75 ml/hr, Infuse over: 13.3 hr, Route: IV, Total Volume: 1,000, Start date: 03/14/19 18:33:00 BOOK CUTTER, Duration: 30 day, Stop date: 04/13/19 18:32:00 BOOK CUTTER, 0 No Longer Active 03/15/2019 [facility] Labetalol Notes: (Same as: Varun banegas Tranallyson) Push over 2 minutes Give bolus over 2-3 minutes. No Longer Active 03/15/2019 [facility] Ondansetron Notes: (Same as: Mojgan zepeda) MEDICATION WASTE Product Size: 4 mg Product Wasted: ___ mg No Longer Active 03/15/2019 [facility] Acetaminophen Notes: Do not ex ceed 4 gm/day. (Same as: Tylenol) No Longer Active 03/15/2019 [facility] Saline Flush 0.9% Notes: prese rvative free. No Longer Active 03/15/2019 [facility] Allergies, Adverse Reactions, Alerts Substance Category Reaction Severity Reaction type Status Date Reported Comments Source penicillins Assertion hives Moderate Drug allergy Active [facility] Lovenox Assertion Hives Drug allergy Active [facility] Immunizations No Data Provided for This Section Results Order Name Results Value Reference Range Date Interpretation Comments Source ANEMIA STUDY Folate Lvl 9.2 >=3.0 ng/mL 03/16/2019 [facility] CHEM PANEL VITAMIN B1 (THIAMINE) WHO LE BLOOD 97.0 66.5 - 200.0 03/16/2019 Result Comment: This test wa s developed and its performance characteristics
determined by [facility]. It has not been cleared or
approved by the Food and Drug Administration.
Performed At: [facility]
[address] [place] [id number]
Adolfo Alejandre MD Ph:[phone] [facility] CHEM PANEL Total Protein 6.8 6.4 - 8.4 03/15/2019 [facility] CHEM PANEL Albumin Lvl 3.6 3.5 - 5.0 03/15/2019 [facility] CHEM PANEL ALT 18 0 - 65 03/15/2019 [facility] CHEM PANEL AST 11 0 - 37 03/15/2019 [facility] CHEM PANEL Alk Phos 106 39 - 136 03/15/2019 [facility] CHEM PANEL Bili Total 0.5 0.2 - 1.3 03/15/2019 [facility] CHEM PANEL Bili Direct 0.2 0.0 - 0.3 03/15/2019 [facility] CHEM PANEL Globulin 3.2 2.7 - 4.2 03/15/2019 [facility] CHEM PANEL A/G Ratio 1.1 0.7 - 1.6 03/15/2019 [facility] CHEM PANEL Bili Indirect 0.3 0.0 - 1.0 03/15/2019 [facility] CHEM PANEL Ammonia 16.0 <=45.0 uMol/L 03/15/2019 [facility] DRUG SCREEN U Amph Scr Nega tive *NA* (03/14/19 10:57 PM) Negative 03/15/2019 [facility] DRUG SCREEN U Bianca Scr Nega tive *NA* (03/14/19 10:57 PM) Negative 03/15/2019 [facility] DRUG SCREEN U Benzodiaz Scr Nega tive *NA* (03/14/19 10:57 PM) Negative 03/15/2019 [facility] DRUG SCREEN U Cocaine Scr Nega tive *NA* (03/14/19 10:57 PM) Negative 03/15/2019 [facility] DRUG SCREEN U Cannab Scr Nega tive *NA* (03/14/19 10:57 PM) Negative 03/15/2019 [facility] DRUG SCREEN U Opiate Scr Nega tive *NA* (03/14/19 10:57 PM) Negative 03/15/2019 [facility] DRUG SCREEN U Phencyclidine Scr Nega tive *NA* (03/14/19 10:57 PM) Negative 03/15/2019 [facility] DRUG SCREEN UDS Note See Note (03/14/19 10:57 PM) 03/15/2019 [facility] URINE AND STOOL UA Turbidity Clear (03/14/19 10:57 PM) Clear 03/15/2019 [facility] URINE AND STOOL UA Spec Grav 1.009 <=1.030 03/15/2019 [facility] URINE AND STOOL UA pH 6.0 5.0 - 8.0 03/15/2019 [facility] URINE AND STOOL UA Protein Negative mg/dL Negative mg/dL 03/15/[address] [facility] [address] URINE AND STOOL UA Glucose Negative mg/dL Negative mg/dL 03/15/[address] [facility] [address] URINE AND STOOL UA Ketones Negative mg/dL Negative mg/dL 03/15/2019 [facility] URINE AND STOOL UA Bili Negative *NA* (03/14/19 10:57 PM) Negative 03/15/2019 [facility] URINE AND STOOL UA Blood Small *ABN* (03/14/19 10:57 PM) Negative 03/15/2019 [facility] URINE AND STOOL UA Nitrite Negative (03/14/19 10:57 PM) Negative 03/15/2019 [facility] URINE AND STOOL UA Leuk Est Negative (03/14/19 10:57 PM) Negative 03/15/2019 [facility] URINE AND STOOL UA Sq Epi Few /LPF Few /LPF 03/15/2019 [facility] URINE AND STOOL UA WBC 3 0 - 5 03/15/2019 [facility] URINE AND STOOL UA RBC 6 0 - 2 03/15/2019 [facility] URINE AND STOOL UA Color Ltyellow 03/15/2019 [facility] URINE AND STOOL UA Urobilinogen <=1.0 mg/dL 0.1 - 1.0 03/15/[address] [facility] [address] ANEMIA STUDY Vitamin B12 Lvl 381 254 - 1320 03/15/2019 [facility] CHEM PANEL Glucose Lvl 101 70 - 99 03/15/2019 [facility] CHEM PANEL BUN 7 7 - 22 03/15/2019 [facility] CHEM PANEL Creatinine Lvl 0.50 0.50 - 1.40 03/15/2019 [facility] CHEM PANEL Sodium Lvl 132 135 - 145 03/15/2019 [facility] CHEM PANEL Potassium Lvl 3.5 3.5 - 5.1 03/15/2019 [facility] CHEM PANEL Chloride Lvl 103 95 - 109 03/15/2019 [facility] CHEM PANEL CO2 24 24 - 32 03/15/2019 [facility] CHEM PANEL Calcium Lvl 8.7 8.5 - 10.5 03/15/2019 [facility] CHEM PANEL AGAP 8.5 10.0 - 20.0 03/15/2019 [facility] CHEM PANEL eGFR 105 03/15/2019 Result Comment: The eGFR is calculated using the CKD-EPI formula. In most young, healthy individuals the eGFR will be >90 mL/min/1.73m2. The eGFR declines with age. An eGFR of 60-89 may be normal in some populations, particularly the elderly, for whom the CKD-EPI formula has not been extensively validated. Use of the eGFR is not recommended in the following populations:

Individuals with unstable creatinine concentrations, including patients and those with serious co-morbid conditions.

Patients with extremes in muscle mass or diet.

The data above are obtained from the National Kidney Disease Education Program (NKDEP) which additionally recommends that when the eGFR is used in patients with extremes of body mass index for purposes of drug dosing, the eGFR should be multiplied by the estimated BMI. [facility] HEMATOLOGY WBC 9.3 3.7 - 10.4 03/15/2019 [facility] HEMATOLOGY RBC 4.49 4.20 - 5.40 03/15/2019 [facility] HEMATOLOGY Hgb 12.6 12.0 - 16.0 03/15/2019 [facility] HEMATOLOGY Hct 38.4 36.0 - 48.0 03/15/2019 [facility] HEMATOLOGY MCV 85.6 80.0 - 98.0 03/15/2019 [facility] HEMATOLOGY MCH 28.0 27.0 - 31.0 03/15/2019 [facility] HEMATOLOGY MCHC 32.7 32.0 - 36.0 03/15/2019 [facility] HEMATOLOGY RDW 17.3 11.5 - 14.5 03/15/2019 [facility] HEMATOLOGY Platelet 212 133 - 450 03/15/2019 [facility] HEMATOLOGY MPV 8.5 7.4 - 10.4 03/15/2019 [facility] HEMATOLOGY PT 14.2 12.0 - 14.7 03/15/2019 [facility] HEMATOLOGY INR 1.10 0.85 - 1.17 03/15/2019 [facility] HEMATOLOGY PTT 28.2 22.9 - 35.8 03/15/2019 [facility] HEMATOLOGY Segs 77.6 45.0 - 75.0 03/15/2019 [facility] HEMATOLOGY Lymphocytes 15.4 20.0 - 40.0 03/15/2019 [facility] HEMATOLOGY Monocytes 5.6 2.0 - 12.0 03/15/2019 [facility] HEMATOLOGY Eosinophils 0.6 0.0 - 4.0 03/15/2019 [facility] HEMATOLOGY Basophils 0.8 0.0 - 1.0 03/15/2019 [facility] HEMATOLOGY Neutrophils # 7.2 1.5 - 8.1 03/15/2019 [facility] HEMATOLOGY Lymphocytes # 1.4 1.0 - 5.5 03/15/2019 [facility] HEMATOLOGY Monocytes # 0.5 0.0 - 0.8 03/15/2019 [facility] HEMATOLOGY Eosinophils # 0.1 0.0 - 0.5 03/15/2019 [facility] HEMATOLOGY Basophils # 0.1 0.0 - 0.2 03/15/2019 [facility] LIPIDS Chol 196 <=199 mg/dL 03/15/2019 [facility] LIPIDS Trig 54 <=149 mg/dL 03/15/2019 [facility] LIPIDS HDL 89 >=61 mg/dL 03/15/2019 [facility] LIPIDS CHD Risk 2.20 3.90 - 5.80 03/15/2019 [facility] LIPIDS LDL (Calculated) 96 <=99 mg/dL 03/15/2019 [facility] LIPIDS VLDL 11 03/15/2019 [facility] SPECIAL CHEMISTRY Hgb A1C 6.0 <=5.6 % 03/15/2019 [facility] Pathology Reports No Data Provided for This Section Diagnostic Reports Report Value Date Source Spine lumbar wo contrast CT Ra diation Dose CTDIVOL = 0 (mGy): DLP = 623.22 (mGy-cm) PROCEDURE INFORMATION: Exam: CT Lumbar Spine Without Contrast Exam date and time: 03/15/2019 9:32 PM Age: 58 years old Clinical indication: Pain; Additional info: /spondylosis TECHNIQUE: Imaging protocol: Computed tomography images of the lumbar spine without contrast. Total DLP: 623.22 mGy-cm Radiation optimization: All CT scans at this facility use at least one of these dose optimization techniques: automated exposure control; mA and/or kV adjustment per patient size (includes targeted exams where dose is matched to clinical indication); or iterative reconstruction. COMPARISON: No relevant prior studies available. FINDINGS: Vertebrae: There is normal alignment and curvature of the lumbar spine. Vertebral body heights are maintained. There is no acute fracture or dislocation. Discs/Spinal canal/Neural foramina: There is mild spinal canal stenosis and mild bilateral neural foraminal narrowing at L3-L4 due to annular bulging, facet hypertrophy, and ligamentum flavum hypertrophy. There is moderate bilateral neural foraminal narrowing and moderate spinal canal stenosis at L4-L5 due to annular bulging, osteophytes, and facet hypertrophy. There is mild annular bulging at L5-S1 which results in no significant spinal canal stenosis or neural foraminal narrowing. Vasculature: There are moderate aortic and bilateral common iliac arterial calcifications. Soft tissues: 3.4 cm right adrenal mass has Hounsfield units of less than 10 suggestive of a benign adenoma. IMPRESSION: 1. No fracture or dislocation involving lumbar spine. 2. Moderate spinal canal stenosis and mo derate bilateral neural foraminal narrowing at L4-L5. 3. Probable benign 3.4 cm right adrenal adenoma. Consider follow-up CT abdomen. Eligio Quispe MD On 03/16/2019 12:45:13; [id number] 03/15/2019 [facility] Brain/Neck CTA Radiation Dose CTDIVOL = 0 (mGy): DLP = 1364.87 (mGy-cm) PROCEDURE INFORMATION: Exam: CT Angiography Head Without And With Contrast Exam date and time: 03/15/2019 7:51 AM Age: 58 years old Clinical indication: /ataxia TECHNIQUE: Imaging protocol: Computed tomographic angiography of the head without and with intravenous contrast. 3D rendering: MIP and/or 3D reconstructe d images were created by the technologist. Total DLP: 1364.87 mGy-cm Radiation optimization: All CT scans at this facility use at least one of these dose optimization techniques: automated exposure control; mA and/or kV adjustment per patient size (includes targeted exams where dose is matched to clinical indication); or iterative reconstruction. Contrast material: OMNI 350; Contrast volume: 100 ml; Contrast route: IV; COMPARISON: BRAIN WO CONTRAST MRI 06/15/2015 12:07 PM FINDINGS: Right internal carotid artery: Intracranial segment is patent with no significant stenosis. No aneurysm. Right anterior cerebral artery: No occlusion or significant flow-limiting stenosis. No aneurysm. Right middle cerebral artery: No occlusion or significant flow-limiting stenosis. No aneurysm. Right posterior cerebral artery: No occlusion or significant flow-limiting stenosis. No aneurysm. Bilateral direct care worker are present which is a normal variant. Right vertebral artery: No occlusion or significant flow-limiting stenosis. No aneurysm. Left internal carotid artery: Intracranial segment is patent with no significant stenosis. No aneurysm. Left anterior cerebral artery: No occlusion or significant flow-limiting stenosis. No aneurysm. Left middle cerebral artery: No occlusion or significant flow-limiting stenosis. No aneurysm. Left posterior cerebral artery: No occlusion or significant flow-limiting stenosis. No aneurysm. Bilateral direct care worker are present which is a normal variant. Left vertebral artery: No occlusion or significant flow-limiting stenosis. No aneurysm. Basilar artery: No occlusion or significant flow-limiting stenosis. No aneurysm. HEAD: Brain: No acute intracranial hemorrhage. No significant white matter disease. No edema. Ventricles: No ventriculomegaly. Bones/joints: No acute fracture. Sinuses: Mild mucosal thickening of the ethmoid air cells. No fluid levels. Mastoid air cells: Visualized mastoids are normal. No mastoid effusion. Soft tissues: Unremarkable. PROCEDURE INFORMATION: Exam: CT Angiography Neck Without And With Contrast Exam date and time: 03/15/2019 7:51 AM Age: 58 years old Clinical indication: /ataxia TECHNIQUE: Imaging protocol: Computed tomographic angiography of the neck without and with intravenous contrast. 3D rendering: MIP and/or 3D reconstructe d images were created by the technologist. Total DLP: 1364.87 mGy-cm Radiation optimization: All CT scans at this facility use at least one of these dose optimization techniques: automated exposure control; mA and/or kV adjustment per patient size (includes targeted exams where dose is matched to clinical indication); or iterative reconstruction. Contrast material: OMNI 350; Contrast volume: 100 ml; Contrast route: IV; COMPARISON: BRAIN WO CONTRAST MRI 06/15/2015 12:07 PM FINDINGS: VASCULATURE: Right common carotid artery: No flow-limiting stenosis. No dissection or occlusion. Right internal carotid artery: No flow-limiting stenosis. No dissection or occlusion. Right external carotid artery: No occlusion or stenosis of the origin. Right vertebral artery: No flow-limiting stenosis. No dissection or occlusion. Dominant right vertebral artery is present. Left common carotid artery: No flow-limiting stenosis. No dissection or occlusion. Left internal carotid artery: No flow-limiting stenosis. No dissection or occlusion. Left external carotid artery: No occlusion or stenosis of the origin. Left vertebral artery: No flow-limiting stenosis. No dissection or occlusion. Left vertebral artery is present. The left vertebral artery originates from the aortic arch which is a normal variant. NECK: Bones/joints: No acute fracture. Soft tissues: No significant soft tissue swelling. Multiple enlarged mediastinal nodes are present. Enlarged thyroid gland with low-density nodules. Other findings: Emphysematous changes are present. COMMENT: Reference per NASCET criteria for degree of stenosis: Mild: less than 50% stenosis. Moderate: 50-69% stenosis. Severe: 70-94% stenosis. Near occlusion: 95-99% stenosis. IMPRESSION: CT Angiography Head Without And With Contrast No major large vessel branch occlusion or flow-limiting intracranial stenosis. CT Angiography Neck Without And With Contrast 1. No flow-limiting internal carotid art sarah or vertebral stenosis detected. 2. Enlarged thyroid gland with low-densi ty nodules. Please correlate with thyroid ultrasound. Shaq Kerr MD On 03/15/2019 10:23:52; [id number] 03/15/2019 [facility] Carotid artery Doppler bilat US CAROTID DOPPLER ULTRASOUND CLINICAL INDICATION: 54-year-old female with a cerebral infarction due to thrombosis ADDITIONAL DATA: None. COMPARISON: None. TECHNIQUE: The extracranial carotid arteries were evaluated with color and spectral Doppler. FINDINGS: Note: ICA=internal carotid artery. CCA=common carotid artery. PSV=peak systolic velocity. Right: Intimal irregularity and no plaque, stenosis or hemodynamic abnormality seen. CCA: PSV 94 cm/s. ICA: PSV 51 cm/s. ICA/CCA PSV ratio: 0.55. Vertebral artery: Cephalad 54 cm/s. Left: Intimal irregularity and scattered focal calcific plaque at the left internal carotid artery, no significant stenosis or hemodynamic abnormality seen. The left vertebral was not visualized or is occluded. CCA: PSV 96 cm/s. ICA: PSV 47 cm/s. ICA/CCA PSV ratio: 0.49 Vertebral artery: Not visualized IMPRESSION: 1. Unremarkable carotid Doppler evaluati on. 2. Left internal carotid artery has calc ifications but no stenosis or hemodynamic abnormality seen. 3. Left vertebral is not visualized or i s occluded. Please note: Ultrasound carotid stenosis determination is based on the 2003 SRU Consensus Conference criteria as follows: <50% stenosis: PSV <125 cm/sec, EDV <40cm/sec, ICA:CCA ratio <2 50-69% stenosis: PSV 125-230cm/sec, EDV 40-100cm/sec, ICA:CCA ratio 2-4 >70% stenosis: PSV >230cm/sec, EDV >100cm/sec, ICA:CCA ratio >4 06/15/2015 [facility] Brain wo contrast MRI MRI BRAI N WITHOUT CONTRAST: 06/15/2015 COMPARISON: None. CLINICAL: I63.30 Cerebral infarction due to thrombosis of unspecified cerebral artery COMMENTS: There is mild diffuse cerebral atrophy. There are minimal (less than 10 in number) punctate T2 hyperintensities involving the cerebral white matter without enhancement nor diffusion restriction. These are nonspecific but likely represent small vessel ischemic change. No hydrocephalus, acute infarct, intracranial hemorrhage, mass, or midline shift is seen. The brainstem and cerebellum are free of signal abnormality. There is no evidence of diffusion restriction. Flow voids at the base of the brain are preserved. The paranasal sinuses and mastoid air cells are well aerated, except for probable mucus retention cyst involving the right maxillary floor. Moderate leftward nasal septal spurring contacts remodels the base of the left inferior turbinate. IMPRESSION: No acute intracranial abnormality. Minimal probable small vessel ischemic change. Moderate nasal septal spurring is a potential source of headaches in some patients. 06/15/2015 [facility] Consultation Notes No Data Provided for This Section Discharge Summaries No Data Provided for This Section History and Physicals No Data Provided for This Section Vital Signs Vital Sign Value Date Comments Source Temperature Oral (F) 98.5 F 03/16/2019 [facility] Respitory Rate 14 03/16/2019 [facility] Heart Rate 65 03/16/2019 [facility] Systolic (mm Hg) 103 03/16/2019 [facility] Diastolic (mm Hg) 63 03/16/2019 [facility] Temperature Oral (F) 97.8 F 03/16/2019 [facility] Heart Rate 81 03/16/2019 [facility] Respitory Rate 14 03/16/2019 [facility] Systolic (mm Hg) 129 03/16/2019 [facility] Diastolic (mm Hg) 83 03/16/2019 [facility] Temperature Oral (F) 97.2 F 03/16/2019 [facility] Heart Rate 74 03/16/2019 [facility] Respitory Rate 17 03/16/2019 [facility] [facility] Systolic (mm Hg) 119 03/16/2019 [facility] Diastolic (mm Hg) 70 03/16/2019 [facility] Height 160.02 cm 03/15/2019 [facility] Weight 52.273 03/15/2019 [facility] BMI Calculated 20.41 03/15/2019 [facility] Encounters Location Location Details Encounter Type Encounter Number Reason For Visit Attending Provider ADM Date DC Date Status Source [facility] Out[facility] Imaging - [facility] Diag Services [id number] Maria Luz Palvadi 06/15/2015 06/16/2015 [facility] Observation [id number] Salim Blaine 03/15/2019 03/16/2019 [facility] Procedures No Data Provided for This Section Assessment and Plan Assessment and Plan Date Source Extracted from:Title: Clinical Document Author: Devante Franco MD Date: 03/15/19 Progress Note - Daily [facility] Completed: Feb, 20:22 by Devatne Franco MD RM: CCDU - 14, SE [facility] SHUKRI ABEL 58y (: 1960) F Attending: Lazaro Reyes MD Service: Internal Medicine Reason for Admission: ATAXIA Working DRG: Code status: None Specified=FULL CODE Current diet: Isolation: No Isolation/Standard Precautions Allergies: Lovenox(Hives), penicillins(hives) SUBJECTIVE Chart reviewed and events was noted. She still has weakness of left lower limb OBJECTIVE 24hr Labs 03/15 1054 Ammonia 16.0 Total Protein 6.8 Albumin Lvl 3.6 Bili Total 0.5 Bili Direct 0.2 Bili Indirect 0.3 Alk Phos 106 AST 11 ALT 18 Globulin 3.2 A/G Ratio 1.1 03/14 2257 U Amph Scr Negative U Bianca Scr Negative U Benzodiaz Scr Negative U Cannab Scr Negative U Cocaine Scr Negative U Opiate Scr Negative U Phencyclidine Scr Negative UDS Note See Note UA Color Ltyellow UA Turbidity Clear UA Spec Grav 1.009 UA pH 6.0 UA Protein Negative UA Glucose Negative UA Ketones Negative UA Bili Negative UA Blood Small UA Urobilinogen <=1.0 UA Nitrite Negative UA Leuk Est Negative UA RBC 6 H UA WBC 3 UA Sq Epi Few 03/14 2134 Glucose Lvl 101 H BUN 7 Creatinine Lvl 0.50 Sodium Lvl 132 L Potassium Lvl 3.5 Chloride Lvl 103 CO2 24 AGAP 8.5 L Calcium Lvl 8.7 eGFR 105 Chol 196 Trig 54 HDL 89 LDL (Calculated) 96 VLDL 11 CHD Risk 2.20 L Hgb A1C 6.0 H TSH 0.735 Vitamin B12 Lvl 381 WBC 9.3 RBC 4.49 Hgb 12.6 Hct 38.4 MCV 85.6 MCH 28.0 MCHC 32.7 RDW 17.3 H Platelet 212 MPV 8.5 Segs 77.6 H Monocytes 5.6 Lymphocytes 15.4 L Eosinophils 0.6 Basophils 0.8 Neutrophils # 7.2 Lymphocytes # 1.4 Monocytes # 0.5 Eosinophils # 0.1 Basophils # 0.1 PT 14.2 INR 1.10 PTT 28.2 Martinez still necessary (Yes/No): Line still necessary (Yes/No): Vitals Tmp(F) Pulse BP RR SpO2 FIO2 03/15 16:28 98.7 72 116/75 1 7 98 --- 03/15 11:18 97.8 85 126/79 1 7 100 --- 03/15 07:31 98.2 86 110/69 1 8 97 --- 03/15 04:00 98.1 85 125/78 - - 99 --- 03/15 00:00 97.5 86 114/74 - - 97 --- 24 Hr Tmax: 98.7F (37.06c) at 03/15 16:2 8 Vital Signs are the last 5 in the past 48 hours. Date Wt(kg) Wt(lb) Ht(cm) Ht(in) Method 03/14 (initial) 52.27 115.00 160.02 63.00 Estimated I&O Record In Out Bal 03/15 24hr Tot 11 0 11 03/14 24hr Tot 10 0 10 NECK: Supple. No neck stiffness. No neck rigidity. HEART: Regular rate and rhythm. No murmur. LUNGS: Clear. No crackles or rhonchi. ABDOMEN: Soft, nontender. Positive bowel sounds. EXTREMITIES: No clubbing or cyanosis. NEUROLOGICAL: She is awake, alert, and oriented x 3. Speech is fluent. Naming, repetition, and comprehension are intact. Pupils are 3 mm, equal, round, and reactive. Fundoscopy is benign with sharp discs. Visual dean are intact. Facial sensory and motor are normal. Gag is present. Tongue is midline. Shoulder elevation is normal. Motor examination: Normal bulk. Normal tone. Strength in both upper and right lower is 5/5. In the left lower, there is limitation for examination due to pain in the left knee. Deep tendon reflexes are 1+ and symmetric. Plantar reflex is downgoing. Coordination: [id number] is normal. Gait: She needs a cane for ambulation. It was unsteady. Sensation is intact. Medications (17) Active Scheduled Meds (9): 03/15/19 aspirin 81 mg PO Daily 03/15/19 busPIRone 15 mg PO TID 03/15/19 dronedarone (Multaq) 400 mg PO Daily 03/15/19 metoprolol (metoprolol tartrate ) 25 mg PO Daily 03/15/19 sertraline (Zoloft) 100 mg PO D aily 03/14/19 sodium chloride (Saline Flush 0 .9%) 10 ml IVP Q12H 03/15/19 spironolactone (Aldactone) 25 m g PO BID 03/14/19 trazodone 150 mg PO Bedtime 03/15/19 warfarin 7.5 mg PO Q5PM Unscheduled Meds (1): 03/15/19 iohexol (Omnipaque 350 injectab le solution) 100 mL IVP ONCALL PRN Meds (6): 03/14/19 acetaminophen 650 mg PO Q4H 03/15/19 hydromorphone (Dilaudid) 2 mg P O Q12H 03/14/19 labetalol 10 mg IVP Q10Min 03/14/19 ondansetron 4 mg IVP Q8H 03/14/19 sodium chloride (Saline Flush 0 .9%) 10 ml IVP PRN 03/14/19 zolpidem 5 mg PO Bedtime One Time Meds: None Continuous Infusions (1): 03/14/19 Sodium Chloride 0.9% IV 1,000 m L 1,000 mL 75 ml/hr Impression Lumbar radiculopathy Spondylosis of spine Toxic encephalopathy due to narcotics Plan CT of lumbar spine Folate, TSH, THIAMIN Extracted from:Title: History and Physical Author: Sarita Martin MD Date: 03/14/19 58-year-old female with history of atria l fibrillation on dronedarone status post pacemaker anticoagulated on Coumadin,TIA,chronicback and knee painwho presented to a freestanding ED with ataxia and confusion. Acute encephalopathy Acute ataxia -Concerning for TIAor CVA -May also be related to patient's multip le pain medications -patient takesDilaudid, baclofen, fentanyl patch -we will hold all of these -Unable to get MRI brain due to pacemake r, will get CTA of the head and neck -PT/OT evaluation -Permissive hypertension -UA UDS, TSH, B12 pending -Neurology consult Chronic pain -Holding all pain medications as above Atrial fibrillation -medications resumed warfarin observation, anticipate 1 midnight 03/16/2019 [facility] Plan of Care No Data Provided for This Section Social History Social History Date Source Social History TypeResponse Smoking Status Current some day smoker; Type: Cigarettes; Exposure to Tobacco Smoke None; Lives with someone who smokes; Cigarette Smoking Last 365 Days Yes; Reg Smoking Cessation Counseling No; Tobacco use per day: 10; entered on: 03/14/19 03/15/2019 [facility] No data available for this section 06/16/2015 [place] Family History No Data Provided for This Section Advance Directives No Data Provided for This Section Functional Status No Data Provided for This Section
--- OUTSIDE RECORDS SUMMARY | 2019-09-23 21:34 | XMS REPORT | Continuity of Care Document ---
Author Author [facility] t Organization [facility] Address [address] [place] [address] Phone Unavailable Care Team Providers Care Testing Specialist Name Role Phone Dwaine BRUMFIELD III PCP Mamta CHANEY Attphys Unavailable Aubrey INFANTE, Timbo Miller Attphys Boyd INFANTE, Adarsh Cunningham Attphys Doug INFANTE, Najma Ramachandran Attphys Amy Valladares Attphys Bonnie Wong Attphys Unavailable Maria Luz Moya Attphys NIDIA BURGOS Admphys Unavailable John Reyes Admphys Payers Payer Name Policy Type Policy Number Effective Date Expiration Date Mamta GARIBAY [id number] [facility] WORKERS COMPUS DEPT OF GDRCOjucufzvca31/23/1989-PresentWorkers C omp xxxxxxxxx 1989 00:00:00 Delfin Bauman UHGE/ATRIUM HEALTHCARExxxxxxxxxxxx2017-PresentHMO/PPO xxxxxxxxxxxx 2017 00:00:00 Delfin Bauman Problems Condition Name Condition Details Condition Category Status Onset Date Resolution Date Last Treatment Date Treating Clinician Comments Source Instability of internal left knee prosthesis Instabili ty of internal left knee prosthesis Disease Active 2019-05-05 00:00:00 Heber Bauman ALAXIA ALAX IA Active 03/14/2019 [facility] Active 2019-03-14 00:00:00 2019-03-14 19:04:00 Marizol Yeung ATAXIA ATAX IA Active 03/14/2019 [facility] Active 2019-03-14 00:00:00 2019-04-27 14:22:00 Marizol Yeung S/P MVR (mitral valve replacement) S/P MVR (mitral valve replace ment) Disease Active 2017-11-10 00:00:00 Blanca Bauman S/P Maze operation for atrial fibrillation S/P Maze op eration for atrial fibrillation Disease Active 2017-11-10 00:00:00 Delfin Bauman 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 hypertension due to mitral valve disease and COPD Disease Active 2017-11-10 00:00:00 Delfin gillette COPD, mild COPD, mild Disease Active 2017-11-10 00:00:00 Delfin Bauman History of chronic back pain History of chronic back pain Disease Active 2017-11-10 00:00:00 Delfin Bauman Smokes 1 pack of cigarettes per day Smokes 1 pack of cigarettes per day Disease Active 2017-11-10 00:00:00 Blanca Bauman Shortness of breath Shortness of breath Disease Active 2017-11-09 00:00 :00 Delfin Bauman SSS (sick sinus syndrome) SSS (sick sinus syndrome) Disease Ac tive 2015-10-08 00:00:[address] 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 - 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 I63.30 - 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 Active 06/05/2015 [facility] [place] Diagnosis Active 2015-06-05 00:01:00 2016-06-12 10:42:00 Marizol Yeung Narcotic overdose Problem Active [facility] Allergies, Adverse Reactions, Alerts Allergy Name Allergy Type Status Severity Reaction(s) Onset Date Inacti ve Date Treating Clinician Comments Source Pregabalin Propensity to adverse reactions to drug Active Anaphylaxis 2019-05-05 00:00:00 Delfin Meth odist Methadone Propensity to adverse reactions to drug Active Hallucinations 2019-05-05 00:00:00 Pt stated she felt l chris she lost her mind and had lost her memory for a short time along with hallucinations Delfin Bauman Acetaminophen Propensity to adverse reactions to drug Active Other (See Comments) 2019-05-05 00:00:00 Pt stated sh clayton was told not to take per her Cariologist Delfin Bauman Enoxaparin Propensity to adverse reactions to drug Active Hives 2017-11-12 00:00:00 Delfin Methodis t Penicillins DA Active SV 2016-12-12 00:00:[address] [facility] enoxaparin DA Active SV 2016-12-12 00:00:[address] [facility] Penicillins Propensity to adverse reactions to drug Active 2015-12-18 00:00:00 Pass out Delfin hylton Penicillin Allergy to substance Active 2010-08-18 00:00:00 [facility] penicillins penicillins Active Moderate [facility] Lovenox Lovenox Active [facility] Family History Family Member Diagnosis Comments Start Date Stop Date Source Natural brother Stroke Lenz ethodist Natural father Stroke [facility] thodist Natural mother Heart disease Delfin Bauman Natural mother Stroke [facility] thodi Social History Social Habit Start Date Stop Date Quantity Comments Source History of tobacco use Cigarette Smoker Delfin Bauman Sex Assigned At Landy Bauman Cigarettes smoked current (pack per day) - Reported 00:00:00 2019-05-06 00:00:00 Delfin Bauman Cigarette pack-years 2019-05-06 00:00:00 2019-05-06 00:00:00 Delfin Bauman Alcohol intake 2019-05-06 00:00:00 2019-05-06 00:00:00 Current non-drinker of alcohol (finding) Delfin Bauman Social History 2015-06-16 04:59:00 2015-06-16 04:59:00 [facility] Smoking Status Start Date Stop Date Source Current every day smoker 2019-05-06 00:00:00 Landy Bauman Social History 2019-03-15 00:37:11 [facility] Medications Ordered Medication Name Filled Medication Name Start Date Stop Da te Current Medication? Ordering Clinician Indication Dosage Frequency Signature (SIG) Comments Components Source dronedarone (MULTAQ) 400 mg tablet 2019-05-06 16:36:02 Yes 400mg QD Take 400 mg by mouth daily. Delfin gillette traZODone (DESYREL) 100 MG tablet 2019-05-06 16:36:02 Yes 150mg QD Take 150 mg by mouth nightly. Delfin rojas fentaNYL (DURAGESIC) 50 mcg/hr 2019-05-06 16:36:02 Yes 1{patch} Q72H Place 1 patch on the skin every third day. Delfin Bauman aspirin (ECOTRIN) 81 MG enteric coated tablet 2019-05-06 16:36:0 2 Yes 81mg QD Take 81 mg by mouth daily. Heber Bauman warfarin (COUMADIN) 7.5 MG tablet 2019-05-06 16:36:02 Yes 7.5mg QD Take 7.5 mg by mouth daily. On HOLD since 11/04/17, because Pt. Is having surgery on 11/10/17. Delfin Bauman busPIRone (BUSPAR) 15 MG tablet 2019-05-06 16:36:02 Yes 15mg Q.[id number] Take 15 mg by mouth 3 (three) times a day. Delfin Bauman metoprolol tartrate (LOPRESSOR) 25 mg tablet 2019-05-06 16:36:02 Yes 12.5mg Take 12.5 mg by mouth daily. Delfin Bauman baclofen (LIORESAL) 10 MG tablet 2019-05-06 16:36:02 Yes 10mg Q.[id number] Take 10 mg by mouth 3 (three) times a day. Delfin Bauman spironolactone (ALDACTONE) 25 MG tablet 2019-05-06 16:36:02 Yes 25mg QD Take 25 mg by mouth daily. Delfin chun sertraline (ZOLOFT) 100 MG tablet 2019-05-06 16:36:02 Yes 100mg QD Take 100 mg by mouth daily. Delfin Bauman hydromorPHONE (DILAUDID) 2 MG tablet 2019-05-06 16:36:02 Yes acute pain 2mg Q4H Take 2 mg by mouth every 4 (four) hours as needed .acu te pain. Delfin Bauman eszopiclone (LUNESTA ORAL) 2019-05-06 16:36:02 Yes 4mg QD Take 4 mg by mouth nightly. Delfin Bauman ondansetron (ZOFRAN) 4 MG tablet 2019-05-06 16:36:02 Yes 4mg Q8H Take 4 mg by mouth every 8 (eight) hours as needed for nausea or vomiting. Delfin Bauman topiramate (TOPAMAX) 25 MG tablet 2019-04-12 10:50:34 2019 00:00:00 No 25mg Q.25D Take 25 mg by mouth 4 (four) times a day . Delfin Bauman mirtazapine (REMERON) 30 MG tablet 2019-04-12 10:50:31 202 00:00:00 No 30mg QD Take 30 mg by mouth nightly. Delfin Bauman HYDROcodone-acetaminophen (NORCO 10-325) 10-325 mg per table t 2019-04-12 10:50:24 2019-04-12 00:00:00 No 1{tbl} Q6H Take 1 tablet by mouth every 6 (six) hours as needed for moderate pain. Delfin Bauman DULoxetine (CYMBALTA) 60 MG capsule 2019-04-12 10:50:1 6 2019-04-12 00:00:00 No 60mg Q.5D Take 60 mg by mouth 2 (two) times a day. Delfin Bauman cholestyramine (QUESTRAN) 4 gram packet 10:50:03 2019-04-12 00:00:00 No 1{packet} Take 1 packet by mouth as nee ded. Delfin Bauman Thiamine 2019-03-16 15:00:00 No Notes: (Jemal e As: Vitamin B1) [facility] Folic Acid 2019-03-16 15:00:00 No Notes: (S lizzy as: Folvite) [facility] Dilaudid 2019-03-16 03:00:00 No Notes: (Jemal e as: Dilaudid) [facility] Warfarin 2019-03-15 23:00:00 No Notes: Nurse to ensure documentation of patient education per anticoagulation policy. Avoid large intake of vitamin-K containing foods diet. WASTE: F/P - P Waste Black; E - P Waste Black (Same As: Coumadin) [facility] Dilaudid 2019-03-15 18:40:00 No Notes: ([facility] e as: Dilaudid) [facility] Lovenox 2019-03-15 17:00:00 No 52.273 mg, Route: SUB-Q, Drug form: INJ, [id number], Dosing Weight 52.273, kg, Start date: 03/15/19 11:00:00 PIECE WORK CHECKER, Duration: 30 day, Stop date: 04/13/19 23:00:[address] [facility] Aspirin 2019-03-15 15:00:00 No Notes: Take with food. [facility] Buspirone 2019-03-15 15:00:00 No Notes: ([facility] As: BuSpar) [facility] Multaq 2019-03-15 15:00:00 No Notes: Same a s: Multaq [facility] metoprolol tartrate 2019-03-15 15:00:00 No Notes: (Same as: Lopressor) [facility] Zoloft 2019-03-15 15:00:00 No Notes: (Same as: Zoloft) [facility] Aldactone 2019-03-15 15:00:00 No Notes: ([facility] As: Aldactone) [facility] Omnipaque 350 injectable solution 2019-03-15 07:00:00 No Notes: (same as:Omnipaque 350). WASTE: F/P - Black; E - Municipal Trash Bin [facility] *RN* pls bring pt's own Lunesta to pharmacy for label 2019-03-15 06:00:00 No *RN* pls bring pt's own Lunesta to pharmacy for label, attn, Drug form: MISC, Route: MISC, QSHIFT, 03/15/19 0:00:00 PIECE WORK CHECKER, Duration: 30 day, Stop date: 04/13/19 16:00:00 PIECE WORK CHECKER, [facility] zolpidem 2019-03-15 03:07:00 No Notes: ([facility] e As: Ambien) [facility] Saline Flush 0.9% 2019-03-15 03:00:00 No Notes: preservative free. [facility] Trazodone 2019-03-15 03:00:00 No Notes: ( me As: Desyrel) [facility] Lunesta 2019-03-15 01:50:00 No 2 mg, 1 tab, Route: PO, Drug form: TAB, Bedtime, Dosing Weight 52.273, kg, PRN Insomnia, Start date: 03/14/19 19:50:00 PIECE WORK CHECKER, Duration: 30 day, Stop date: 04/13/19 19:49:00 PIECE WORK CHECKER [facility] Aspirin 2019-03-15 00:49:00 Yes 81 mg, PO, D aily, 0 Refill(s) [facility] Zoloft 2019-03-15 00:49:00 Yes 100 mg, PO, D aily, 0 Refill(s) [facility] Spironolactone 25 MG Oral Tablet [Aldactone] 2019-03-15 00:49:00 Yes 25 mg = 1 tab, PO, BID, 0 Refill(s) Marizol Yeung dronedarone 400 MG Oral Tablet [Multaq] 2019-03-15 00:49:00 Yes 400 mg = 1 tab, PO, Daily, 0 Refill(s) [facility] Dilaudid 2019-03-15 00:49:00 Yes 100.4 F, 0 Refill(s) [facility] baclofen 10 mg oral tablet 2019-03-15 00:49:00 Yes 10 mg = 1 tab, PO, TID, 0 Refill(s) [facility] warfarin 7.5 mg oral tablet 2019-03-15 00:49:00 Yes 7.5 mg = 1 tab, PO, Daily, 0 Refill(s) [facility] Eszopiclone 2 MG Oral Tablet [Lunesta] 2019-03-15 00:49:00 Yes 2 mg = 1 tab, PO, Bedtime, PRN for insomnia, # 30 tab, 0 Refill(s) [facility] metoprolol tartrate 25 mg oral tablet 2019-03-15 00:49:00 Y es 25 mg = 1 tab, PO, Daily, 0 Refill(s) [facility] trazodone 150 mg oral tablet 2019-03-15 00:49:00 Yes 150 mg = 1 tab, PO, Bedtime, 0 Refill(s[facility] Zofran 2019-03-15 00:49:00 Yes 0 Refill(s) [facility] Ondansetron 4 MG Oral Tablet [Zofran] 2019-03-15 00:49:00 Y es 4 mg = 1 tab, PO, Q8H, PRN Nausea, 0 Refill(s) Marizol Yeung busPIRone 15 mg oral tablet 2019-03-15 00:49:00 Yes 15 mg = 1 tab, PO, TID, 0 Refill(s) Marizol Yeung fentaNYL 50 mcg/hr transdermal film, extended release 2019-03-15 00:49:00 Yes TOP, Q72H, 0 Refill(s) [facility] Sodium Chloride 0.9% IV 1,000 mL 2019-03-15 00:33:00 No 1,000 mL, Rate: 75 ml/hr, Infuse over: 13.3 hr, Route: IV, Total Volume: 1,000, Start date: 03/14/19 18:33:00 PIECE WORK CHECKER, Duration: 30 day, Stop date: 04/13/19 18:32:00 PIECE WORK CHECKER, 0 Marizol Yeung Labetalol 2019-03-15 00:33:00 No Notes: (Same as: Normodyne, Trandate) Push over 2 minutes Give bolus over 2-3 minutes. Marizol Yeung Ondansetron 2019-03-15 00:33:00 No Notes: (Same as: Zofran) MEDICATION WASTE Product Size: 4 mg Product Wasted: ___ mg Marizol Yeung Acetaminophen 2019-03-15 00:33:00 No Notes: Do not exceed 4 gm/day. (Same as: Tylenol) Marizol Yeung Saline Flush 0.9% 2019-03-15 00:33:00 No Notes: preservative free. Marizol Yeung Aspirin (Aspir 81) 81 Mg TABLET. Aspirin (Aspir 81) 81 Mg TABLET. Yes 81 Daily [facility] Clonazepam Clonazepam Yes 2 Three Times A Day [facility] Diphenoxylate Hcl/Atropine (Lomotil Tablet) 1 Each TAB LET Diphenoxylate Hcl/Atropine (Lomotil Tablet) 1 Each TABLET Yes 2 Four Times Daily as needed for Diarrhea [facility] Dronedarone Hydrochloride (Multaq) 400 Mg TABLET Drone darone Hydrochloride (Multaq) 400 Mg TABLET Yes 400 Daily [facility] Levofloxacin (Levaquin) 500 Mg TABLET Levofloxacin (Levaquin) 500 M g TABLET Yes 500 Daily [facility] Methadone Hcl Methadone Hcl Yes 20 Every 8 Hour s [facility] Metoprolol Succinate Metoprolol Succinate Yes 25 Daily [facility] Sertraline Hcl Sertraline Hcl Yes 200 Daily [facility] Topiramate Topiramate Yes 25 Daily [facility] Trazodone Hcl Trazodone Hcl Yes 1 Qhs [facility] Warfarin Sodium (Coumadin) 5 Mg TABLET Warfarin Sodium (Coumadin ) 5 Mg TABLET Yes 5 Today At 5:00PM [facility] Zolpidem Tartrate (Ambien) 10 Mg TABLET Zolpidem Tartrate (A mbien) 10 Mg TABLET 2016-06-01 00:00:00 No 20 Bedtime [facility] Alprazolam (Xanax) 1 Mg TABLET Alprazolam (Xanax) 1 Mg TABLET 2016-05-30 00:00:00 No 1 Qhs [facility] Alprazolam Alprazolam 2016-05-30 00:00:00 No 1 Thr ee Times A Day [facility] Diphenoxylate Hcl/Atrop Sulf (Diphenoxylate-Atropine T ab) 1 Each TABLET Diphenoxylate Hcl/Atrop Sulf (Diphenoxylate-Atropine Tab) 1 Each TABLET 2016-05-30 00:00:00 No As Needed [facility] Divalproex Sodium (Depakote) 500 Mg TABLET. Divalpro ex Sodium (Depakote) 500 Mg TABLET. 2016-05-30 00:00:00 No 2 Daily [facility] Fluticasone/Salmeterol (Advair 100-50 Diskus) 1 Each D ISK.W.DEV Fluticasone/Salmeterol (Advair 100-50 Diskus) 1 Each DISK.W.DEV 2016-05-30 00:00:00 No Twice A Day [facility] Furosemide (Lasix) 40 Mg TABLET Furosemide (Lasix) 40 Mg TABLET 2016-05-30 00:00:00 No [facility] Hydrocodone Bit/Acetaminophen ([place] 10-325 Tablet) 1 Each TABLET Hydrocodone Bit/Acetaminophen ([place] 10-325 Tablet) 1 Each TABLET 2016-05-30 00:00:00 No 1 Q4 Prn [facility] Levalbuterol Tartrate (Xopenex Hfa) 15 Gm HFA.AER.AD L evalbuterol Tartrate (Xopenex Hfa) 15 Gm HFA.AER.AD 2016-05-30 00:00:00 No Four Times Daily [facility] Morphine Sulfate (Sallie) 10 Mg CAP.SR.PEL Morphine Short lfate (Sallie) 10 Mg CAP.SR.PEL 2016-05-30 00:00:00 No 10 Twice A Day [facility] Spironolactone Spironolactone 2016-05-30 00:00:00 No 1 [facility] Tiotropium Simla (Spiriva) 18 Mcg CAP.W.DEV Tiotropi um Simla (Spiriva) 18 Mcg CAP.W.DEV 2016-05-30 00:00:00 No [facility] Estradiol (Divigel) 0.5 Mg GEL.PACKET Estradiol (Divigel) 0.5 Mg GEL.PACKET 2011-04-18 00:00:00 No [facility] Sertraline Hcl (Zoloft) 100 Mg TABLET Sertraline Hcl (Zoloft) 10 0 Mg TABLET 2011-04-18 00:00:00 No 1 Daily [facility] Vital Signs Vital Name Observation Time Observation Value Comments Source Weight 2019-09-23 11:58:00 120 [lb_av] [facility] BMI (Body Mass Index) 2019-09-23 11:58:00 21.3 kg/m2 [facility] Systolic blood pressure 2019-05-06 11:28:01 108 mm[Hg] Delfin Bauman Diastolic blood pressure 2019-05-06 11:28:01 59 mm[Hg] Lenz Amish Heart rate 2019-05-06 11:28:01 92 /min Lenz Amish Body temperature 2019-05-06 11:28:01 36.11 Gerda Lary conrad Amish Respiratory rate 2019-05-06 11:28:01 17 /min Lary conrad Amish Oxygen saturation in Arterial blood by Pulse oximetry 05-05 11:28:01 97 /min Delfin Amish Body height 2019-05-05 08:38:00 160 cm Delfin Amish Body weight 2019-05-05 08:38:00 50.213 kg Lenz Amish BMI 2019-05-05 08:38:00 19.61 kg/m2 Lenz Amish Temperature Oral (F) 2019-03-16 17:50:00 98.5 [facility] Respitory Rate 2019-03-16 17:50:00 [facility] Heart Rate 2019-03-16 17:50:00 [facility] Systolic (mm Hg) 2019-03-16 17:50:00 Alexander [facility] Diastolic (mm Hg) 2019-03-16 17:50:00 Mem [facility] [place] Temperature Oral (F) 2019-03-16 13:37:00 97.8 F [facility] Heart Rate 2019-03-16 13:37:00 [facility] Respitory Rate 2019-03-16 13:37:00 [facility] Systolic (mm Hg) 2019-03-16 13:37:00 Alexander rial [facility] Diastolic (mm Hg) 2019-03-16 13:37:00 Mem orial [place] Temperature Oral (F) 2019-03-16 09:30:00 97.2 F [facility] Heart Rate 2019-03-16 09:30:00 [facility] Respitory Rate 2019-03-16 09:30:00 Memori al [place] Systolic (mm Hg) 2019-03-16 09:30:00 Alexander rial [facility] Diastolic (mm Hg) 2019-03-16 09:30:00 [facility] [place] Height 2019-03-15 00:38:00 160.02 cm [facility] [place] Weight 2019-03-15 00:38:00 [facility] BMI Calculated 2019-03-15 00:38:00 [facility] Procedures Procedure Date / Time Performed Performing Clinician [facility] e Computed tomography of brain without radiopaque contrast 2019-08 00:00:00 [facility] HC COMPLETE BLD COUNT W/AUTO DIFF 2019-05-06 05:00:00 Víctor Burgos BASIC METABOLIC PANEL 2019-05-06 05:00:00 Nidia Burgos PROTHROMBIN TIME WITH INR 2019-05-06 05:00:00 Shaq Olvera ESTIMATED GFR 2019-05-06 05:00:00 Shaq Olvera ethodist POC GLUCOSE 2019-05-05 13:29:00 Nidia Burgos XR KNEE 1 OR 2 VW LEFT 2019-05-05 13:20:00 Nidia Burgos on Amish SURGICAL PATHOLOGY REQUEST 2019-05-05 12:51:[address] AN ELECTIVE ENDOTRACHEAL AIRWAY 2019-05-05 10:38:36 Clayton Calderon ARTERIAL LINE 2019-05-05 10:28:19 Marisa Nix REVISION, ARTHROPLASTY, KNEE 2019-05-05 10:12:00 Nidia Burgos PROTHROMBIN TIME WITH INR 2019-05-05 08:32:00 Fausto Bullock PARTIAL THROMBOPLASTIN TIME (PTT) 2019-05-05 08:32:00 Mamta Bullock TYPE AND SCREEN 2019-05-05 08:32:00 Fausto Bullock POC GLUCOSE 2019-05-05 08:02:00 Nidia Burgos odist URINE CULTURE 2019-04-12 11:24:00 Nidia Burgos ECG PRE/POST OP 2019-04-12 11:07:32 Valerie Morales MRSA SCREEN CULTURE 2019-04-12 10:58:00 Nidia Burgos PROTHROMBIN TIME WITH INR 2019-04-12 10:58:00 Nidia Burgos PARTIAL THROMBOPLASTIN TIME (PTT) 2019-04-12 10:58:00 Víctor Burgos URINALYSIS SCREEN AND MICROSCOPY, WITH REFLEX TO CULTURE 202 10:58:00 Valerie Morales TYPE AND SCREEN 2019-04-12 10:58:00 Valerie Morales HEMOGLOBIN A1C 2019-04-12 10:58:00 Valerie Morales COMPREHENSIVE METABOLIC PANEL 2019-04-12 10:58:00 Valerie Rollins HC COMPLETE BLD COUNT W/AUTO DIFF 2019-04-12 10:58:00 Valerie Rdz ESTIMATED GFR 2019-04-12 10:58:00 Nidia Burgos Plan of Care Planned Activity Planned Date Details Comments Source Future Scheduled Test 2019-09-24 00:00:00 INFLUENZA VACCINE [code = INFLUENZA VACCINE] [facility] Future Scheduled Test 2008 00:00:00 BREAST CANCER SCRE ENING [code = BREAST CANCER SCREENING] [facility] 2008 00:00:00 COLONOSCOPY SCREEN ING [code = COLONOSCOPY SCREENING] [facility] Future Scheduled Test 2008 00:00:00 SHINGLES VACCINES (#1) [code = SHINGLES VACCINES (#1)] [facility] Future Scheduled Test 1979-08-09 00:00:00 Screening for yumiko gnant neoplasm of cervix (procedure) [code = 097350126] Delfin Del Rosario t Encounters Start Date/Time End Date/Time Encounter Type Admission Type [facility] Care Department Encounter ID Source 2019-09-23 11:52:00 2019-09-23 18:00:00 Departed Emergency Room 1 [facility] [id number] 2019-05-05 00:00:00 2019-05-06 00:00:00 Inpatient AUBREY NIDIA H 021 [id number] Delfin Bauman 2019-03-14 18:30:00 2019-03-16 15:09:00 Outpatient David Valladares [facility] [id number] 2019-03-14 18:30:00 2019-03-14 18:30:00 Outpatient [facility] [id number] [facility] 2015-06-15 11:05:00 2015-06-15 23:59:00 Outpatient Natalie Moyati [facility] [id number] Results Test Description Test Time Test Comments Results Result Comments Source Serum or plasma sodium measurement (moles/volume) 2019-09-23 16:21:00 Test Item Sodium Level (test code = 2951-2) 139 136-145 [facility] (moles/volume)2019-09-23 16:21:00* Test Item Value Reference Range Interpretation Comments Potassium Level (test code = 2823-3) 4.0 3.5-5.1 [facility] chloride measurement (moles/volume)2019-09-23 16:21:00* Test Item Value Reference Range Interpretation Comments Chloride Level (test code = 2075-0) 103 98-107 [facility] carbon dioxide, total measurement (moles/volume)2019-09-23 16:21:00* Test Item Value Reference Range Interpretation Comments Carbon Dioxide Level (test code = 2028-9) 25 22-29 [facility] anion [id number] 16:21:00* Test Item Value Reference Range Interpretation Comments Anion Gap (test code = 79000-7) 15.0 8-16 [facility] urea nitrogen measurement (mass/volume)2019-09-23 16:21:00* Test Item Value Reference Range Interpretation Comments Blood Urea Nitrogen (test code = 3094-0) 8 7-26 [facility] creatinine measurement (mass/volume)2019-09-23 16:21:00* Test Item Value Reference Range Interpretation Comments Creatinine (test code = 2160-0) 0.61 0.57-1.11 [facility] urea nitrogen/creatinine mass [id number] 16:21:00* Test Item Value Reference Range Interpretation Comments BUN/Creatinine Ratio (test code = 3097-3) 13 6-25 [facility] (GFR) [id number] 16:21:00* Test Item Value Reference Range Interpretation Comments Estimat Glomerular Filtration Rate (test code = 429990868) > 60 >60 Ranges were taken from the National Kidney Disease Education Program and the [facility] literature.Reference ranges:60 or greater: [id number] ( for 3 consecutive months): Chronic kidney disease 15 or less: Kidney failureUT [facility] HendersonGlucose [id number] 16:21:00* Test Item Value Reference Range Interpretation Comments Glucose Level (test code = BAF4244) 107 74-118 [facility] calcium measurement (mass/volume)2019-09-23 16:21:00* Test Item Value Reference Range Interpretation Comments Calcium Level (test code = 75996-3) 8.8 8.4-10.2 [facility] total bilirubin measurement (mass/volume)2019-09-23 16:21:00* Test Item Value Reference Range Interpretation Comments Total Bilirubin (test code = 1975-2) 0.7 0.2-1.2 [facility] less than one hour [id number] 16:21:00* Test Item Value Reference Range Interpretation Comments Aspartate Amino Transf (AST/SGOT) (test code = Aspartate Amino Transf (AST/SGOT)) 13 5-34 [facility] alanine aminotransferase measurement (enzymatic activity/volume)2019-09-23 16:21:00* Test Item Value Reference Range Interpretation Comments Alanine Aminotransferase (ALT/SGPT) (test code = 1742-6) 19 0-55 [facility] protein measurement (mass/volume)2019-09-23 16:21:00* Test Item Value Reference Range Interpretation Comments Total Protein (test code = 2885-2) 6.4 6.5-8.1 [facility] albumin measurement (mass/volume)2019-09-23 16:21:00* Test Item Value Reference Range Interpretation Comments Albumin (test code = 1751-7) 3.4 3.5-5.0 [facility] globulin [facility] (mass/volume) 2019-09-23 16:21:00* Test Item Value Reference Range Interpretation Comments Globulin (test code = 10976-3) 3.0 2.3-3.5 [facility] plasma albumin/globulin mass vwrln0390-08-71 16:21:00* Test Item Value Reference Range Interpretation Comments Albumin/Globulin Ratio (test code = 1759-0) 1.1 0.8-2.0 [facility] plasma alkaline phosphatase measurement (enzymatic activity/volume)2019-09-23 16:21:00* Test Item Value Reference Range Interpretation Comments Alkaline Phosphatase (test code = 6768-6) 99 40-150 [facility] plasma creatine kinase measurement (enzymatic activity/volume)2019-09-23 16:21:00* Test Item Value Reference Range Interpretation Comments Creatine Kinase (test code = 2157-6) 77 29-168 [facility] plasma creatine kinase MB measurement (mass/volume)2019-09-23 16:21:00* Test Item Value Reference Range Interpretation Comments Creatine Kinase MB (test code = 82882-0) 1.80 0-5.0 [facility] measurement by highly sensitive enzyme mlrmhgnyvwd2211-17-93 16:21:00* Test Item Value Reference Range Interpretation Comments Troponin I (test code = 59468-0) 0.013 0-0.300 [facility] plasma ethanol measurement (mass/volume)2019-09-23 16:21:00* Test Item Value Reference Range Interpretation Comments Ethyl Alcohol Level (test code = 5643-2) < 10.0 0.0-10.0 [facility] plasma salicylates measurement (mass/volume)2019-09-23 16:21:00* Test Item Value Reference Range Interpretation Comments Salicylates Level (test code = 4024-6) < 5.0 0-30 [facility] HendersonU[facility] opiates screening ewvg3041-88-45 13:58:00* Test Item Value Reference Range Interpretation Comments Urine Opiates Screen (test code = 77768-0) POSITIVE NEGATIVE ALL TESTS PERFORMED MANUALLY ON [employer] TOX/SEE TEST This test provides only a sc reen. Positive results should be repeated by a confirmatory test.[facility] HendersonBarbiturates screen, lsjco7679-71-34 13:58:00* Test Item Value Reference Range Interpretation Comments Urine Barbiturates Screen (test code = 516059114) NEGATIVE NEGA TIVE [facility] HendersonU[facility] phencyclidine detection by screening wuqslw0167-18-29 13:58:00* Test Item Value Reference Range Interpretation Comments Urine Phencyclidine Screen (test code = 11057-0) NEGATIVE NEGAT CHRIS [facility] HendersonU[facility] amphetamines detection by screen method > 1000 ng/eR6318-52-68 13:58:00* Test Item Value Reference Range Interpretation Comments Urine Amphetamines Screen (test code = 31091-5) NEGATIVE NEGATI VE [facility] HendersonFluoroscopic procedure less than one hour hzusmtis2988-87-33 13:58:00* Test Item Value Reference Range Interpretation Comments Urine Methamphetamines Screen (test code = Urine Metha mphetamines Screen) NEGATIVE NEGATIVE [facility] Henderson[facility] benzodiazepines detection by screening wlsohb8210-96-54 13:58:00* Test Item Value Reference Range Interpretation Comments Urine Benzodiazepines Screen (test code = 45647-9) NEGATIVE NEG ATIVE [facility] HendersonU[facility] cocaine measurement (mass/volume) 2019-09-23 13:58:00* Test Item Value Reference Range Interpretation Comments Urine Cocaine Screen (test code = 3398-5) NEGATIVE NEGATIVE [facility] HendersonUrine cannabinoids detection by screening umlsga5410-60-70 13:58:00* Test Item Value Reference Range Interpretation Comments Urine Cannabinoids Screen (test code = 54986-0) NEGATIVE NEGATI VE THESE RESULTS ARE FOR MEDICAL TREATMENT ONLYTHIS REPORT CONTAINS UNCONFIR MED SCREENING RESULTS*POSITIVE RESULTS WILL BE CONFIRMED BY REFERENCE LAB UPON R EQUEST CUT-OFFDRUG CLASS CONCENTRATION ng/mLAmphetamines 1000Methamphetamines 1000Cocaine 300Opiate 300Phencyc lidine 25Cannabinoid 50Barbiturates 300Benzodiazepine 300Methadone 300[facility] CenterUrine methadone gnvhlz8001-39-31 13:58:00* Test Item Value Reference Range Interpretation Comments Urine Methadone Screen (test code = 65862-4) NEGATIVE NEGATIVE THESE RESULTS ARE FOR MEDICAL TREATMENT ONLYTHIS REPORT CONTAINS UNCONFIR MED SCREENING RESULTS*POSITIVE RESULTS WILL BE CONFIRMED BY REFERENCE LAB UPON R EQUEST CUT-OFFDRUG CLASS CONCENTRATION ng/mLAmphetamines 1000Methamphetamines 1000Cocaine Metabolite 300Opiate 300Phencyc lidine 25Cannabinoid 50Barbiturates 300Benzodiazepine 300Methadone 300[facility] CenterCT BRAIN ZO8134-99-63 13:35:00 [facility] [address] [address] Patient Name: SHUKRI ABEL MR #: [id number] : 1960 Age/Sex: 59/F Req #: [id number] Adm Physician: Ordered by: JOEL CHANEY DO Report #: [id number] Location: ER Room/Bed: Procedure: [id number] CT/CT BRAIN WO Exam Date: 09/23/19 Exam Time: 1325 REPORT STATUS: Signed Exam: Head CT without con trast History: Altered mental status Comparison studies: Head CT 05/30/2016 Technique: Axial images were obtained from the skull base to the vertex. Coronal and sagittal images reconstructed from the axial data. Dose modulat ion, iterative reconstruction, and/or weight based adjustment of the mA/kV was utilized to reduce the radiation dose to as low as reasonably achievable. Radiation dose: Total DLP: 921.4 mGy*cm. Estimated effective dose: DLP x 0.015 Intravenous contrast: None Findings: Scalp: No fracture or destructive lytic or blastic lesions. Bones: No fractures, blastic or lytic l esions. Brain sulci: Appropriate for age. Ventricles: Normal in size and configuration. No hydrocephalus. Extra-axial spaces: Unchanged small osteom a or exostosis along the inner table the right frontal calvarium without mass effect. No other mass or fluid collection. Parenchyma: No abnormal de nsities. No masses, acute hemorrhage, acute or chronic vascular insults. Sellar/suprasellar region: No abnormalities. Craniocervical junction: Patent foramen magnum. No Chiari one malformation. Included paranasal sinuses: Jameson ar. Middle ear cavities and mastoids: Clear. IMPRESSION: 1. No acu te abnormalities. 2. No changes from the prior head CT of 05/30/2016. Sign ed by: Dr. Kathy Perez M.D. on 09/23/2019 1:39 PM Dictated By: KATHY PEREZ MD 38 Trans cribed By: YARI on 09/23/191338 COPY TO: JOEL CHANEY DO CHEST SINGLE (PORTABLE)2019-09-23 13:07:[address] [address] Patient Name: SHUKRI ABEL MR #: [id number] : 1960 Age/Sex: 59/F Req #: [id number] Adm Physician: Ordered by: JOEL CHANEY DO Report #: [id number] Location: ER Room/Bed: Procedure: [id number] DX/CHEST SINGL E (PORTABLE) Exam Date: 09/23/19 Exam Time: 1247 REPORT STATUS: Signed EXAMINATION: CHEST SINGLE (PORTABLE) INDICATION: Altered mental status COMPARI SON: None FINDINGS: LINES/TUBES:Left chest pacer. EKG leads overl ie the chest. LUNGS:The lungs are well-inflated. Mild pulmonary interstitia l edema. PLEURA:No pleural effusion or pneumothorax. MEDIASTINUM:The c ardiomediastinal silhouette appears normal in size and shape. Atherosclerotic calcifications of the thoracic aorta. BONES/SOFT TISSUES:No acute osseous i njury. Sternotomy wires in place. ABDOMEN:No free air under the diaphragm. IMPRESSION: Mild interstitial pulmonary edema. Signed by: Yumiko Carl MD on 09/23/2019 1:08 PM Dictated By: YUMIKO CARL MD 1308 Transcribed By: YARI on 09/23/19 1 308 COPY TO: JOEL CHANEY DO Blood leukocytes automated count (number/volume)2019-09-23 12:27:00* Test Item Value Reference Range Interpretation Comments White Blood Count (test code = 6690-2) 10.19 4.8-10.8 [facility]Bl[facility] erythrocytes automated count (number/volume)2019-09-23 12:27:00* Test Item Value Reference Range Interpretation Comments Red Blood Count (test code = 789-8) 4.79 3.6-5.1 [facility] HendersonBlood hemoglobin measurement (moles/volume)2019-09-23 12:27:00* Test Item Value Reference Range Interpretation Comments Hemoglobin (test code = 03945-7) 12.6 12.0-16.0 [facility] HendersonAutomated blood hematocrit (volume fraction)2019-09-23 12:27:00* Test Item Value Reference Range Interpretation Comments Hematocrit (test code = 4544-3) 40.9 34.2-44.1 [facility] HendersonAutomated erythrocyte mean corpuscular hsurmw8795-73-68 12:27:00* Test Item Value Reference Range Interpretation Comments Mean Corpuscular Volume (test code = 787-2) 85.4 81-99 [facility] HendersonAutomated erythrocyte mean corpuscular hemoglobin (mass per erythrocyte)2019-09-23 12:27:00* Test Item Value Reference Range Interpretation Comments Mean Corpuscular Hemoglobin (test code = 785-6) 26.3 28-32 [facility] HendersonAutomated erythrocyte mean corpuscular hemoglobin concentration measurement (mass/volume)2019-09-23 12:27:00* Test Item Value Reference Range Interpretation Comments Mean Corpuscular Hemoglobin Concent (test code = 786-4) 30.8 31-35 [facility] HendersonRDW YqoZr-Eij2474-64-31 12:27:00* Test Item Value Reference Range Interpretation Comments Red Cell Distribution Width (test code = 05875-7) 17.7 11.7 -14.4 [facility] HendersonAutomated blood platelet count (count/volume)2019-09-23 12:27:00* Test Item Value Reference Range Interpretation Comments Platelet Count (test code = 777-3) 192 140-360 NO EDTA PLT CLUMPS SEEN --- 09/23/19 1308 ---PLT previously reported as: 192 x 10e3/uL [facility] HendersonAutunc healthed blood segmented neutrophil count as percentage of total oandetnlne4365-48-76 12:27:00* Test Item Value Reference Range Interpretation Comments Neutrophils (%) (Auto) (test code = 87696-5) 90.6 38.7-80.0 [facility] lymphocyte count as percentage ot total qzrmqswbbc5532-61-19 12:27:00* Test Item Value Reference Range Interpretation Comments Lymphocytes (%) (Auto) (test code = 736-9) 5.5 18.0-39.1 [facility] HendersonAutomated blood monocyte count as percentage of total ykmuisavbz2205-97-31 12:27:00* Test Item Value Reference Range Interpretation Comments Monocytes (%) (Auto) (test code = 5905-5) 2.7 4.4-11.3 [facility] HendersonAutomated blood eosinophil count as percentage of total zqkjzbwpgk0699-02-13 12:27:00* Test Item Value Reference Range Interpretation Comments Eosinophils (%) (Auto) (test code = 713-8) 0.4 0.0-6.0 [facility] HendersonAutomated blood basophil count as percentage of total uvqupitbod9655-69-04 12:27:00* Test Item Value Reference Range Interpretation Comments Basophils (%) (Auto) (test code = 706-2) 0.4 0.0-1.0 [facility] HendersonFluoroscopic procedure less than one hour tpybxhei2460-08-88 12:27:00* Test Item Value Reference Range Interpretation Comments IM GRANULOCYTES % (test code = IM GRANULOCYTES %) 0.4 0.0- 1.0 [facility] HendersonAutom[facility] blood neutrophil count 2019-09-23 12:27:00* Test Item Value Reference Range Interpretation Comments Neutrophils # (Auto) (test code = 751-8) 9.2 2.1-6.9 [facility] HendersonBlood lymphocytes count (number/volume) 2019-09-23 12:27:00* Test Item Value Reference Range Interpretation Comments Lymphocytes # (Auto) (test code = 51295-4) 0.6 1.0-3.2 [facility] HendersonBlood monocytes automated count (number/volume)2019-09-23 12:27:00* Test Item Value Reference Range Interpretation Comments Monocytes # (Auto) (test code = 742-7) 0.3 0.2-0.8 [facility] HendersonAutom[facility] blood eosinophil count 2019-09-23 12:27:00* Test Item Value Reference Range Interpretation Comments Eosinophils # (Auto) (test code = 711-2) 0.0 0.0-0.4 [facility] HendersonAutomated blood basophil count (count/volume)2019-09-23 12:27:00* Test Item Value Reference Range Interpretation Comments Basophils # (Auto) (test code = 704-7) 0.0 0.0-0.1 [facility] HendersonFluoroscopic procedure less than one hour gvinphsb8570-40-49 12:27:00* Test Item Value Reference Range Interpretation Comments Absolute Immature Granulocyte (auto (ariel t code = Absolute Immature Granulocyte (auto) 0.04 0-0.1 [facility] HendersonArterial blood pH ywctjmwvkru1365-81-16 12:23:00* Test Item Value Reference Range Interpretation Comments Arterial Blood pH (test code = 2744-1) 7.35 7.35-7.45 [facility] HendersonpCO2 LdcU9621-66-58 12:23:00* Test Item Value Reference Range Interpretation Comments Arterial Blood Partial Pressure CO2 (test code = 2018-) 48 35-45 [facility] HendersonpCO2 SvpS0608-74-78 12:23:00* Test Item Value Reference Range Interpretation Comments Arterial Blood Partial Pressure O2 (test code = 2018-09) 71 80-105 [facility] HendersonArterial blood bicarbonate measurement (moles/volume)2019-09-23 12:23:00* Test Item Value Reference Range Interpretation Comments Arterial Blood HCO3 (test code = 1960-4) 27 22-26 [facility] HendersonArterial cord blood carbon dioxide, total measurement by calculation (moles/volume)2019-09-23 12:23:00* Test Item Value Reference Range Interpretation Comments Arterial Blood Total CO2 (test code = 10448-0) 28 [facility] HendersonAr[facility] blood base excess by calculation 2019-09-23 12:23:00* Test Item Value Reference Range Interpretation Comments Arterial Blood Base Excess (test code = 1925-7) 1.0 -2-3 [facility] HendersonArterial blood oxygen saturation dwakzjhfljy4602-46-93 12:23:00* Test Item Value Reference Range Interpretation Comments Arterial Blood Oxygen Saturation (test code = 2708-6) 93.0 95-98 [facility] HendersonFluoroscopic procedure less than one hour dnnzrrls2855-84-67 12:23:00* Test Item Value Reference Range Interpretation Comments FiO2 (test code = FiO2) 21 ROOM AIR EDDA FROM RIGHT RADIALUT Health HendersonBasic metabolic ppeub0311-76-28 06:57:06* Test Item Value Reference Range Interpretation Comments Sodium (test code = 2951-2) 136 135- 148 mEq/L Potassium (test code = 2823-3) 3.5 3.5- 5.0 mEq/L Chloride (test code = 2075-0) 100 98- 112 mEq/L CO2 (test code = 2028-9) 22 24- 31 mEq/L L Anion gap (test code = 11434-9) 14@ANIO 7- 15 mEq/L BUN (test code = 3094-0) 6 mg/dL 8-23 L Creatinine (test code = 2160-0) 0.48 mg/dL 0.5-0.9 L Glucose (test code = 2345-7) 119 mg/dL 65-99 H Calcium (test code = 27605-9) 8.8 mg/dL 8.8-10.2 Lab Interpretation (test code = 91073-5) Abnormal [place] MethodistEstimated NTL1108-51-65 06:57:06* Test Item Value Reference Range Interpretation Comments Estimated GFR (test code = 5488) >=90 mL/min/1.73 m2 Catergory Units InterpretationG1 >=90 Normal or highG2 60-89 Mildly sqqebdvfiL5o 45-59 Mildly to moderately qtiqlivhxR1z 30-44 Moderately to severely decreasedG4 15-29 Severely decreasedG5 <15 Kidney failureThe eGFR was calculated using the Chronic Kidney Disease Epidemiology Collaboration (CKD-EPI) equation. Interpretation is based on recommendations of the National Kidney Foundation-Kidney Disease Outcomes Quality Initiative (NKF-KDOQI) published in 2014. [place] MethodistProthrombin time with STB2505-51-54 06:33:42* Test Item Value Reference Range Interpretation Comments Prothrombin time (test code = 5902-2) 15.1 11.5- 14.5 sec H INR (test code = 10767-5) 1.2 Th e International Normalized Ratio (INR) is a therapeutic monitoring tool for patients who are stable on oral anticoagulant therapy. An INR of 2.0-3.0 is suggested for deep vein thrombosis/pulmonary embolism. Lab Interpretation (test code = 33919-4) Abnormal [place] MethodistCBC with platelet and xplkmaxlybes8975-54-33 06:25:27* Test Item Value Reference Range Interpretation Comments WBC (test code = 38269-7) 10.04 4.50- 11.00 k/uL RBC (test code = 31499-6) 3.64 m/uL 4.2-5.5 L HGB (test code = 718-7) 9.9 g/dL 12-16 L HCT (test code = 4544-3) 31.7 % 37-47 L MCV (test code = 787-2) 87.1 fL 82-100 MCH (test code = 785-6) 27.2 pg 27-34 MCHC (test code = 786-4) 31.2 g/dL 31-37 RDW - SD (test code = 03563-9) 54.4 fL 37-55 MPV (test code = 48412-1) 10.4 fL 8.8-13.2 Platelet count (test code = 35080-5) 187 150- 400 k/uL Nucleated RBC (test code = 98343-4) 0.00 /100 WBC Neutrophils (test code = 93304-0) 73.6 % 39-69 H Lymphocytes (test code = 52811-4) 13.0 % 25-45 L Monocytes (test code = 50592-6) 11.6 % 0-10 H Eosinophils (test code = 80616-7) 0.8 % 0-5 Basophils (test code = 01387-8) 0.7 % 0-1 Immature granulocytes (test code = 29747-1) 0.3 % 0-1 "Immature granulocytes" (promyelocytes, myelocytes, metamyelocytes) Lab Interpretation (test code = 77141-3) [facility] avinrfk1002-51-60 14:58:50* Test Item Value Reference Range Interpretation Comments Case number (test code = 9679933) [id number] Surgical pathology report (test code = 2255) See link below for PDF Lab Report Result status (test code = 4568473) This is Final Report for [id number] 9120-6 [facility] 2 Vw Dkrw3637-63-71 14:00:49Hm Interface, Radiology Results - 05/05/2019 2:03 PM CDTEXAMINATION: XR KNEE 1 OR 2 VW LEFTCLINICAL HISTORY: Knee replaced asymptomatic follow up, total knee arthoplastyCOMPARISON: None.IMPRESSION:There is no evidence of left knee fracture, dislocation, or joint effusion. Bones are osteopenic. Total knee replacement is seen. Subcutaneous gas is present. [id number] Sol Medical Center qxjrkby1051-44-48 13:37:00* Test Item Value Reference Range Interpretation Comments POC glucose (test code = 70550-2) 153 mg/dL 65-99 H Hvac Manager Name: Ghassan ClemensKilo ID: [id number]: [facility] Notified clinical exercise physiologist Interpretation (test code = 24096-2) Abnormal Delfin MidqjfvvwBmxzun5552-45-27 10:38:36Jerald Calderon CRNA 05/05/2019 10:39 AMAirwayDate/Time: 05/05/2019 10:21 AMPerformed by: Jerald Calderon CRNAAuthorized by: Marisa Nix MD Location: ORUrgency: ElectiveDifficult Airway: No Anesthesiologist: Marisa Nix MDResident/ANALYSIS EVALUATOR/AA: Jerald CalderonPerformed by: resident/ANALYSIS EVALUATOR/AAPreoxygenated with 100% O2: Yes Mask Ventilation: Assisted maskFinal Airway Type: Endotracheal airwayFinal Endotracheal Airway: ETTCuffed: Yes Technique Used: Direct laryngoscopyDevices/Methods Used in Placement: Intubating st yletInsertion Site: OralBlade Type: MillerLaryngoscope Blade/Videolaryngoscope Blade Size: 2ETT Size (mm): 7.0Cuff at minimum occlusion pressure: Yes Measu red from: LipsETT to Lips (cm): 19Placement Verified by: CO2 detection, direct visualization and equal breath sounds Laryngoscopic view: Grade I - full view of glottisRapid Sequence Induction (RSI): No Modified RSI: No Number of Attem pts at Approach: 1 Cords clear, ett easily advanced, atraumatic, oral structure s/dentition/lips remain unchangedAthens MethodistArterial rtea6343-30-18 10:28:19Jerald Calderon CRNA 05/05/2019 10:29 AMArterial linePerformed by: Marisa Nix MDAuthorized by: Marisa Nix MD Patient Location: ORStart Time: 05/05/2019 10:22 AMEnd Time: 05/05/2019 10:26 AMPre- procedure: patient identified, IV checked, site and side verified, risks and benefits discussed, procedure verified, surgical consent complete, patient position confirmed, monitors and equipment checked and pre-op evaluation complete MSBT: antiseptic used and hand hygiene performed TIme Out Performed: 05/05/2019 10:19 AMIndications: Indications: multiple ABGs and hemodynamic monitoring Anesthesia: Anesthesia: GeneralProcedure Details: Arterial Line placement: Placed post induction Line placement site: RadialLine placement side: Right Arterial line gauge: 20 GNumber of attempts: 1Ultrasound guidance used: No Post-procedure: Post-procedure: Sterile dressing applied Post procedure circulation, sensation, movement: Unchanged Patient tolerance: Patient tolerated the procedure well with no immediate complicationsAthens MethodistType and fmjrsz6487-28-28 09:42:00* Test Item Value Reference Range Interpretation Comments ABO grouping (test code = 883-9) A Rh type (test code = 45544-9) POS Antibody screen (gel) (test code = 890-4) NEG [place] MethodistPartial thromboplastin time, odlwtsctr2216-39-10 09:09:02* Test Item Value Reference Range Interpretation Comments PTT (test code = 54187-0) 28.5 23.0- 36.0 sec PTT therapeutic range for unfractionated heparin is61.0-112.0 seconds which corresponds to Anti-Xa0.3-0.7 U/ml. Delfin BaumanMRSA screen gqeivtl5112-88-86 14:53:54* Test Item Value Reference Range Interpretation Comments MRSA screen culture isolate (test code = 1754) No Meth icillin Resistant Staphylococcus aureus isolated. Specimen InformationSpecimen Source: NaresSpecimen [facility] [place] [facility] [place] Pre/Post [id number] 03:48:36* Test Item Value Reference Range Interpretation Comments Ventricular rate (test code = 253) 94 Atrial rate (test code = 255) 94 CT interval (test code = 266) 176 QRSD interval (test code = 260) 82 QT interval (test code = 264) 386 QTC interval (test code = 265) 482 P axis 1 (test code = 267) 79 QRS axis 1 (test code = 268) 46 T wave axis (test code = 270) 85 EKG impression (test code = 273) Normal sinus rhythm-P rolonged QT-Abnormal ECG- Delfin BaumanComprehensive metabolic nicwu3969-31-81 12:34:15* Test Item Value Reference Range Interpretation Comments Sodium (test code = 2951-2) 132 135- 148 mEq/L L Potassium (test code = 2823-3) 4.2 3.5- 5.0 mEq/L Chloride (test code = 5-0) 95 98- 112 mEq/L L CO2 (test code = 2027-9) 26 24- 31 mEq/L Anion gap (test code = 21636-3) 11@ANIO 7- 15 mEq/L BUN (test code = 3094-0) 9 mg/dL 8-23 Creatinine (test code = 2160-0) 0.63 mg/dL 0.5-0.9 Glucose (test code = 2345-7) 107 mg/dL 65-99 H Calcium (test code = 52797-3) 9.4 mg/dL 8.8-10.2 Protein (test code = 2885-2) 7.1 g/dL 6.3-8.3 Oyblehy6032.6-7.0 g/dL1 ammd4126.4-7.6 g/dL7 months-6swyw432.1-7.3 g/dL1-2 voelv289.6-7.5 g/dL>3 .0-8.0 g/zA78-0502871.3-8.3 g/dL Albumin (test code = 1751-7) 3.9 g/dL 3.5-5 A/G ratio (test code = 1759-0) 1.2 0.7-3.8 Alkaline phosphatase (test code = 6768-6) 125 U/L 35-104 H AST (test code = 1920-8) 25 U/L 10-35 ALT (test code = 1742-6) 39 U/L 5-50 Total bilirubin (test code = 1974-2) 0.6 mg/dL 0-1.2 Lab Interpretation (test code = 15759-7) Abnormal [place] MethodistHemoglobin L9t6032-71-09 12:15:58* Test Item Value Reference Range Interpretation Comments Hemoglobin A1C (test code = 76073-4) 6.0 % 4-5.6 H HbA1c cutoffs for diagnosing diabetes:4.0% - 5.6% = normal5.7% - 6.4% = increased risk for diabetes (prediabetes)9>=6.5% = nzwowjhs2Avegp for glycemic control (ADA 2016)< 7.0% Target for non adults with diabetes. More or less stringent targets may be appropriate for individual patients. <7.5% Target for Children and adolescents with type 1 diabetes. Lab Interpretation (test code = 35716-9) Abnormal [place] MethodistUrinalysis screen and microscopy, with reflex to culture 2019-04-12 12:03:27* Test Item Value Reference Range Interpretation Comments Specimen site (test code = 0253422) Clean catch Color, UA (test code = 5778-6) Straw Appearance, UA (test code = 5767-9) Clear Specific gravity, UA (test code = 5811-5) 1.006 1.001-1.035 pH, UA (test code = 5803-2) 6.0 5.0-8.5 Protein, UA (test code = 58372-1) Negative Negative Glucose, UA (test code = 72519-7) Negative Negative Ketones, UA (test code = 2514-8) Negative Negative Bilirubin, UA (test code = 5770-3) Negative Negative Blood, UA (test code = 5794-3) Small Negative A Nitrite, UA (test code = 5802-4) Negative Negative Urobilinogen, UA (test code = 19155-2) <2.0 <2.0 Leukocyte esterase, UA (test code = 5799-2) Negative Negative Epithelial cells, UA (test code = 5787-7) 2 /HPF WBC, UA (test code = 5821-4) <1 0- 4 /HPF RBC, UA (test code = 11054-6) 1 0- 5 /HPF Bacteria, UA (test code = 81270-7) Few None seen Yeast, UA (test code = 46536-3) None seen Yeast with pseudohyphae, UA (test code = 15215-0) None seen Lab Interpretation (test code = 96948-2) Abnormal [place] MethodistUrine furhmei3176-46-70 11:59:01* Test Item Value Reference Range Interpretation Comments Urine culture (test code = 9066892) SEE COMMENT Bacteriuria screen negative. [place] MethodistANEMIA XGRPD3894-92-67 10:03:009.2[facility]annCHEM PANEL 2019-03-16 10:03:0097.0[facility]annCHEM PNZKN9823-17-77 16:54:006.8[facility]annCHEM JOSMZ4298-16-48 16:54:003.6[facility]annCHEM QGZKV8004-70-14 16:54:0018[facility]annCHEM RVZRQ0094-83-93 16:54:0011[facility]annCHEM RLTHT7094-36-11 16:54:35588Gimazwfs HermannCHEM OXVIQ4353-33-21 16:54:000.5 [facility]annCHEM EVZHL7483-83-57 16:54:000.2[facility]annCHEM PANEL 2019-03-15 16:54:003.2[facility] HermannCHEM NLVMD2188-33-51 16:54:00* Test Item Value Reference Range Interpretation Comments A/G Ratio (test code = A/G Ratio) 1.1 1 0.7-1.6 [facility] [id number] 16:54:000.3[facility] PANEL 2019-03-15 16:54:0016.0[facility] [id number] 04:57:00Negative *NA*(03/14/19 10:57 PM)[facility] [id number] 04:57:00Negative *NA*(03/14/19 10:57 PM)[facility] [id number] 04:57:00Negative *NA*(03/14/19 10:57 PM)[facility] [id number] 04:57:00Negative *NA*(03/14/19 10:57 PM)[facility] [id number] 04:57:00Negative *NA*(03/14/19 10:57 PM)[facility] [id number] 04:57:00Negative *NA*(03/14/19 10:57 PM)[facility] [id number] 04:57:00Negative *NA*(03/14/19 10:57 PM)[facility] [id number] 04:57:00See Note (03/14/19 10:57 PM)[facility] [id number] 04:57:00Clear (03/14/19 10:57 PM)[facility] [id number] 04:57:00* Test Item Value Reference Range Interpretation Comments UA Spec Grav (test code = UA Spec Grav) 1.009 1 [facility] [id number] 04:57:00* Test Item Value Reference Range Interpretation Comments UA pH (test code = UA pH) 6.0 1 5.0-8.0 [facility] [id number] 04:57:00Negative *NA*(03/14/19 10:57 PM)[facility] [id number] 04:57:00Small *ABN*(03/14/19 10:57 PM)[facility] [id number] 04:57:00Negative (03/14/19 10:57 PM) [facility] [id number] 04:57:00Negative (03/14/19 10:57 PM) [facility] [id number] 04:57:003[facility] [id number] 04:57:006[facility]annANEMIA [id number] 03:34:38557 [facility] [id number] 03:34:94976Rrmhvhhh HermannCHEM PANEL 2019-03-15 03:34:007[facility] [id number] 03:34:000.50[facility] [id number] 03:34:73865Iepoypgu HermannCHEM YEQSJ5028-12-94 03:34:003.5[facility] [id number] 03:34:52141Iuhhgsxv HermannCHEM [id number] 03:34:0024[facility] [id number] 03:34:008.7 [facility] [id number] 03:34:008.5[facility]annCHE[facility] PANEL 2019-03-15 03:34:68555Smeoyacv IurzfcqFFWYXOXJKB6255-02-88 03:34:009.3[facility] LjybmhpSIGHQSCZJE1896-16-59 03:34:004.49[facility] OoxillkAIKVXQAWTN9309-63-29 03:34:0012.6[facility] WutrbdmNYCDLNOLMH8470-35-87 03:34:0038.4[facility] DSPJUVCMZK5415-53-16 03:34:0085.6[facility] TxwhtybLAIFBLUNTM8984-11-81 03:34:00* Test Item Value Reference Range Interpretation Comments MCH (test code = MCH) 28.0 pg 27.0-31.0 [facility] XvemuzjATRPZTUNAU4263-35-78 03:34:0032.7[facility]annHEMATOLOGY 2019-03-15 03:34:0017.3[facility] BzcdwsjJVHIGKNEIK1822-30-85 03:34:88427Npybyrka CadmdzvDVOYRKZYZD6427-75-24 03:34:008.5[facility] WykfbgoDGWGDUFDOR1908-38-27 03:34:00* Test Item Value Reference Range Interpretation Comments PT (test code = PT) 14.2 s 12.0-14.7 [facility] WxswdtcLJWPHLYGLR9013-54-17 03:34:00* Test Item Value Reference Range Interpretation Comments INR (test code = INR) 1.10 1 0.85-1.17 [facility] XtnxqrbBZZYHMMCOS2507-22-20 03:34:00* Test Item Value Reference Range Interpretation Comments PTT (test code = PTT) 28.2 s 22.9-35.8 [facility] NglqknqBWFEQEYWMD8164-32-66 03:34:0077.6[facility]annHEMATOLOGY 2019-03-15 03:34:0015.4[facility] GgpmxhsZYPJZQYVVT9980-67-48 03:34:005.6[facility] FpbwjsvZTUGFSJIKR7190-86-12 03:34:000.6[facility] MptammnFPNUSGJTIV4337-12-98 03:34:000.8[facility] NtmwcfiEVLAPLTDRI0398-06-45 03:34:007.2[facility] Gamal PAUXGRCGHT8040-03-21 03:34:001.4[facility] RapyrttBNVGLWHZUT5353-93-76 03:34:000.5 [facility] AinvrmzOSEDRSQSTG5703-02-33 03:34:000.1[facility]annHEMATOLOGY 2019-03-15 03:34:000.1[facility] NtvpeopEKMXEO0617-14-86 03:34:99379Zltqadzu JewnsbiYDGSMJ9657-69-60 03:34:0054[facility] HhlwijzPJITAN9109-57-77 03:34:0089 [facility] XdfunmhAUKZRE4206-02-01 03:34:00* Test Item Value Reference Range Interpretation Comments CHD Risk (test code = CHD Risk) 2.20 1 3.90-5.80 [facility] ZzhjveeXWGBTZ1869-31-88 03:34:0096[facility] LhvscfmFMWVVJ3741-47-04 03:34:00* Test Item Value Reference Range Interpretation Comments VLDL (test code = VLDL) [address] [facility] WFSBJUIFW5601-70-74 03:34:006.0[facility]
--- OUTSIDE RECORDS SUMMARY | 2019-09-23 21:34 | XMS REPORT | Summary of Care ---
Author Author [facility] Organization [facility] Address Unknown Phone Unavailable Encounter GINETTE Ryan(KARLA) [id number] Date(s): 03/14/19 - 03/16/19 [facility] [address] [place] [address]- [phone] Discharge Disposition: Home or Self Care Attending Physician: David Valladares MD Admitting Physician: Lazaro Reyes MD Vital Signs 1 2 3 Most recent to oldest [Reference Range]: 160.02 cm (03/14/19 6:38 PM) Height 98.5 DegF (03/16/19 11:50 AM) 97.8 DegF (03/16/19 7:37 AM) 97.2 DegF (03/16/19 3:30 AM) Temperature Oral [96.4-99.1 DegF] 103/63 mmHg (03/16/19 11:50 AM) 129/83 mmHg (03/16/19 7:37 AM) 119/70 mmHg (03/16/19 3:30 AM) Blood Pressure [90-140/60-90 mmHg] 14 BRMIN (03/16/19 11:50 AM) 14 BRMIN (03/16/19 7:37 AM) 17 BRMIN (03/16/19 3:30 AM) Respiratory Rate [14-20 BRMIN] 65 bpm (03/16/19 11:50 AM) 81 bpm (03/16/19 7:37 AM) 74 bpm (03/16/19 3:30 AM) Peripheral Pulse Rate [60-100 bpm] 52.273 kg (03/14/19 6:38 PM) Weight 20.41 m2 (03/14/19 6:38 PM) Body Mass Index Problem List No data available for this section Allergies, Adverse Reactions, Alerts Substance Reaction Severity Status penicillins hives Moderate Active Lovenox Hives Active Medications *RN* pls bring pt's own Lunesta to pharmacy for label *RN* pls bring pt's own Lunesta to pharmacy for label, attn, Drug form: MISC, Ro wing: FERNANDEZ BOYLE, 03/15/19 0:00:00 [employer], Duration: 30 day, Stop date: 04/13/19 1 6:00:00 [employer], 0 Start Date: 03/15/19 Stop Date: 03/14/19 Status: Deleted acetaminophen 650 mg, 2 tab, Route: PO, Drug form: TAB, Q4H, kg, PRN Pain 1-3/Temp > 100.4 F, Start date: 03/14/19 18:33:00 [employer], Duration: 30 day, Stop date: 04/13/19 18:32:00 [employer], 0 Notes: Do not exceed 4 gm/day. (Same as: Tylenol) Start Date: 03/14/19 Stop Date: 03/16/19 Status: Discontinued Aldactone 25 mg, 1 tab, Route: PO, Drug form: TAB, BID, Dosing Weight 52.273, kg, Start da te: 03/15/19 9:00:00 [employer], Duration: 30 day, Stop date: 04/13/19 17:00:00 [employer], 0 Notes: (Same As: Aldactone) Start Date: 03/15/19 Stop Date: 03/16/19 Status: Discontinued Aldactone 25 mg oral tablet 25 mg = 1 tab, PO, BID, 0 Refill(s) Start Date: 03/14/19 Status: Ordered aspirin 81 mg, PO, Daily, 0 Refill(s) Start Date: 03/14/19 Status: Ordered aspirin 81 mg, 1 tab, Route: PO, Drug form: CHEWTAB, Daily, Dosing Weight 52.273, kg, St art date: 03/15/19 9:00:00 [employer], Duration: 30 day, Stop date: 04/13/19 9:00:00 CS T, 0 Notes: Take with food. Start Date: 03/15/19 Stop Date: 03/16/19 Status: Discontinued baclofen 10 mg oral tablet 10 mg = 1 tab, PO, TID, 0 Refill(s) Start Date: 03/14/19 Status: Ordered busPIRone 15 mg, 1.5 tab, Route: PO, Drug form: TAB, TID, Dosing Weight 52.273, kg, Start date: 03/15/19 9:00:00 [employer], Duration: 30 day, Stop date: 04/13/19 17:00:00 [employer], 0 Notes: (Same As: BuSpar) Start Date: 03/15/19 Stop Date: 03/16/19 Status: Discontinued busPIRone 15 mg oral tablet 15 mg = 1 tab, PO, TID, 0 Refill(s) Start Date: 03/14/19 Status: Ordered Dilaudid 1 mg, 1 mL, Route: IV, Drug form: SOLN, Q12H, Dosing Weight 52.273, kg, PRN Pain Score 7-10, Start date: 03/15/19 12:40:00 [employer], Duration: 30 day, Stop date: 12:39:00 [employer], 0 Notes: (Same as: Dilaudid) Start Date: 03/15/19 Stop Date: 03/15/19 Status: Discontinued Dilaudid 2 mg, Q12H, PRN Pain 4-6/Temp > 100.4 F, 0 Refill(s) Start Date: 03/14/19 Status: Ordered Dilaudid 2 mg, 1 tab, Route: PO, Drug form: TAB, Q12H, Dosing Weight 52.273, kg, PRN Pain Score 4-6, Start date: 03/15/19 21:00:00 [employer], Duration: 30 day, Stop date: 03/27 20:59:00 [employer], 0 Notes: (Same as: Dilaudid) Start Date: 03/15/19 Stop Date: 03/16/19 Status: Discontinued fentaNYL 50 mcg/hr transdermal film, extended release TOP, Q72H, 0 Refill(s) Start Date: 03/14/19 Status: Ordered folic acid 1 mg, 1 tab, Route: PO, Drug form: TAB, Daily, Dosing Weight 52.273, kg, Start d ate: 03/16/19 9:00:00 [employer], Duration: 30 day, Stop date: 04/14/19 9:00:00 [employer], 0 Notes: (Same as: Folvite) Start Date: 03/16/19 Stop Date: 03/16/19 Status: Discontinued labetalol 10 mg, 2 mL, Route: IVP, Drug form: INJ, Q10Min, kg, PRN Hypertension, For SBP > 180 mmHg and/or DBP > 105 mmHg, Start date: 03/14/19 18:33:00 [employer], Duration: 30 day, Stop date: 04/13/19 18:32:00 [employer], 0 Notes: (Same as: Normodyne, Trandate)Push over 2 minutes Give bolus over 2-3 mi nutes. Start Date: 03/14/19 Stop Date: 03/16/19 Status: Discontinued Lovenox 52.273 mg, Route: SUB-Q, Drug form: INJ, [id number], Dosing Weight 52.273, kg, Sta rt date: 03/15/19 11:00:00 [employer], Duration: 30 day, Stop date: 04/13/19 23:00:[address] Start Date: 03/15/19 Stop Date: 03/15/19 Status: Discontinued Lunesta 2 mg, 1 tab, Route: PO, Drug form: TAB, Bedtime, Dosing Weight 52.273, kg, PRN I nsomnia, Start date: 03/14/19 19:50:00 [employer], Duration: 30 day, Stop date: 0 19:49:00 [employer] Start Date: 03/14/19 Stop Date: 03/14/19 Status: Deleted Lunesta 2 mg oral tablet 2 mg = 1 tab, PO, Bedtime, PRN for insomnia, # 30 tab, 0 Refill(s) Start Date: 03/14/19 Stop Date: 04/13/19 Status: Ordered metoprolol tartrate 25 mg, 1 tab, Route: PO, Drug form: TAB, Daily, Dosing Weight 52.273, kg, Start date: 03/15/19 9:00:00 [employer], Duration: 30 day, Stop date: 04/13/19 9:00:00 [employer], 0 Notes: (Same as: Lopressor) Start Date: 03/15/19 Stop Date: 03/16/19 Status: Discontinued metoprolol tartrate 25 mg oral tablet 25 mg = 1 tab, PO, Daily, 0 Refill(s) Start Date: 03/14/19 Status: Ordered Multaq 400 mg, 1 tab, Route: PO, Drug form: TAB, Daily, Dosing Weight 52.273, kg, Start date: 03/15/19 9:00:00 [employer], Duration: 30 day, Stop date: 04/13/19 9:00:00 [employer], 0 Notes: Same as: Multaq Start Date: 03/15/19 Stop Date: 03/16/19 Status: Discontinued Multaq 400 mg oral tablet 400 mg = 1 tab, PO, Daily, 0 Refill(s) Start Date: 03/14/19 Status: Ordered Omnipaque 350 injectable solution 100 mL, Route: IVP, Drug Form: SOLN, Dosing Weight 52.273, kg, ONCALL, GFR > 45 mL/min, Start date: 03/15/19 1:00:00 [employer], Duration: 1 doses or times, 0 Notes: (same as:Omnipaque 350).WASTE: F/P - Black; E - Municipal Trash Bin Start Date: 03/15/19 Stop Date: 03/16/19 Status: Discontinued ondansetron 4 mg, 2 mL, Route: IVP, Drug form: INJ, Q8H, kg, PRN Nausea & Vomiting, Start date: 03/14/19 18:33:00 [employer], Duration: 30 day, Stop date: 04/13/19 18:32:00 [employer], 0 Notes: (Same as: Zofran) MEDICATION WASTE Product Size: 4 mgProduct Was yesica: ___ mg Start Date: 03/14/19 Stop Date: 03/16/19 Status: Discontinued Saline Flush 0.9% 10 ml, Route: IVP, Drug Form: INJ, kg, Q12H, Start date: 03/14/19 21:00:00 [employer], Duration: 30 day, Stop date: 04/13/19 9:00:00 [employer], 0 Notes: preservative free. Start Date: 03/14/19 Stop Date: 03/16/19 Status: Discontinued Saline Flush 0.9% 10 ml, Route: IVP, Drug Form: INJ, kg, PRN, PRN Line Flush, Start date: 03/14/19 18:33:00 [employer], Duration: 30 day, Stop date: 04/13/19 18:32:00 [employer], 0 Notes: preservative free. Start Date: 03/14/19 Stop Date: 03/16/19 Status: Discontinued Sodium Chloride 0.9% IV 1,000 mL 1,000 mL, Rate: 75 ml/hr, Infuse over: 13.3 hr, Route: IV, Total Volume: 1,000, Start date: 03/14/19 18:33:00 [employer], Duration: 30 day, Stop date: 04/13/19 18:32:0 0 [employer], 0 Start Date: 03/14/19 Stop Date: 03/16/19 Status: Discontinued thiamine 100 mg, 1 tab, Route: PO, Drug form: TAB, Daily, Dosing Weight 52.273, kg, Start date: 03/16/19 9:00:00 [employer], Duration: 30 day, Stop date: 04/14/19 9:00:00 [employer], 0 Notes: (Same As: Vitamin B1) Start Date: 03/16/19 Stop Date: 03/16/19 Status: Discontinued trazodone 150 mg, 3 tab, Route: PO, Drug form: TAB, Bedtime, Dosing Weight 52.273, kg, Sta rt date: 03/14/19 21:00:00 [employer], Duration: 30 day, Stop date: 04/12/19 21:00:[address], 0 Notes: (Same As: Desyrel) Start Date: 03/14/19 Stop Date: 03/16/19 Status: Discontinued trazodone 150 mg oral tablet 150 mg = 1 tab, PO, Bedtime, 0 Refill(s) Start Date: 03/14/19 Status: Ordered warfarin 7.5 mg, 1 tab, Route: PO, Drug form: TAB, Q5PM, Dosing Weight 52.273, kg, Start date: 03/15/19 17:00:00 [employer], Duration: 30 day, Stop date: 04/13/19 17:00:00 [employer], 0 Notes: Nurse to ensure documentation of patient education per anticoagulation po licy.Avoid large intake of vitamin-K containing foods diet.WASTE: F/P - P Waste Black; E - P Waste Black(Same As: Coumadin) Start Date: 03/15/19 Stop Date: 03/16/19 Status: Discontinued warfarin 7.5 mg oral tablet 7.5 mg = 1 tab, PO, Daily, 0 Refill(s) Start Date: 03/14/19 Status: Ordered Zofran 0 Refill(s) Start Date: 03/14/19 Status: Ordered Zofran 4 mg oral tablet 4 mg = 1 tab, PO, Q8H, PRN Nausea, 0 Refill(s) Start Date: 03/14/19 Status: Ordered Zoloft 100 mg, PO, Daily, 0 Refill(s) Start Date: 03/14/19 Status: Ordered Zoloft 100 mg, 1 tab, Route: PO, Drug form: TAB, Daily, Dosing Weight 52.273, kg, Start date: 03/15/19 9:00:00 [employer], Duration: 30 day, Stop date: 04/13/19 9:00:00 [employer], 0 Notes: (Same as: Zoloft) Start Date: 03/15/19 Stop Date: 03/16/19 Status: Discontinued zolpidem 5 mg, 1 tab, Route: PO, Drug form: TAB, Bedtime, PRN Insomnia, Start date: 03/14 21:07:00 [employer], Duration: 30 day, Stop date: 04/13/19 21:06:00 [employer], 0 Notes: (Same As: Ambien) Start Date: 03/14/19 Stop Date: 03/16/19 Status: Discontinued Results Most recent to 1 oldest [Reference Range]: Neutrophils # 7.2 K/CMM [1.5-8.1 K/CMM] (03/14/19 9:34 PM) Lymphocytes # 1.4 K/CMM [1.0-5.5 K/CMM] (03/14/19 9:34 PM) Monocytes # [0.0-0.8 0.5 K/CMM K/CMM] (03/14/19 9:34 PM) Eosinophils # 0.1 K/CMM [0.0-0.5 K/CMM] (03/14/19 9:34 PM) Basophils # [0.0-0.2 0.1 K/CMM K/CMM] (03/14/19 9:34 PM) Vitamin B1 97.0 nMol/L 1 [66.5-200.0 nMol/L] *NA* (03/16/19 4:03 AM) Bili Indirect 0.3 mg/dL [0.0-1.0 mg/dL] (03/15/19 10:54 AM) eGFR 105 mL/min/1.73m2 2 *NA* (03/14/19 9:34 PM) UDS Note See Note (03/14/19 10:57 PM) A/G Ratio [0.7-1.6] 1.1 (03/15/19 10:54 AM) Albumin Lvl [3.5-5.0 3.6 g/dL g/dL] (03/15/19 10:54 AM) Alk Phos [39-136 106 unit/L unit/L] (03/15/19 10:54 AM) ALT [0-65 unit/L] 18 unit/L (03/15/19 10:54 AM) Ammonia [<=45.0 16.0 uMol/L uMol/L] (03/15/19 10:54 AM) U Amph Scr Negative [Negative] *NA* (03/14/19 10:57 PM) AGAP [10.0-20.0 8.5 mEq/L mEq/L] *LOW* (03/14/19 9:34 PM) AST [0-37 unit/L] 11 unit/L (03/15/19 10:54 AM) U Bianca Scr Negative [Negative] *NA* (03/14/19 10:57 PM) Basophils [0.0-1.0 0.8 % %] (03/14/19 9:34 PM) U Benzodiaz Scr Negative [Negative] *NA* (03/14/19 10:57 PM) BUN [7-22 mg/dL] 7 mg/dL (03/14/19 9:34 PM) Calcium Lvl 8.7 mg/dL [8.5-10.5 mg/dL] (03/14/19 9:34 PM) CHD Risk [3.90-5.80] 2.20 *LOW* (03/14/19 9:34 PM) Chol [<=199 mg/dL] 196 mg/dL (03/14/19 9:34 PM) Chloride Lvl [95-109 103 mEq/L mEq/L] (03/14/19 9:34 PM) CO2 [24-32 mEq/L] 24 mEq/L (03/14/19 9:34 PM) U Cocaine Scr Negative [Negative] *NA* (03/14/19 10:57 PM) Creatinine Lvl 0.50 mg/dL [0.50-1.40 mg/dL] (03/14/19 9:34 PM) Bili Direct [0.0-0.3 0.2 mg/dL mg/dL] (03/15/19 10:54 AM) Eosinophils [0.0-4.0 0.6 % %] (03/14/19 9:34 PM) Folate Lvl [>=3.0 9.2 ng/mL ng/mL] (03/16/19 4:03 AM) Globulin [2.7-4.2 3.2 g/dL g/dL] (03/15/19 10:54 AM) Glucose Lvl [70-99 101 mg/dL mg/dL] *HI* (03/14/19 9:34 PM) Hct [36.0-48.0 %] 38.4 % (03/14/19 9:34 PM) HDL [>=61 mg/dL] 89 mg/dL (03/14/19 9:34 PM) Hgb [12.0-16.0 g/dL] 12.6 g/dL (03/14/19 9:34 PM) Hgb A1C [<=5.6 %] 6.0 % *HI* (03/14/19 9:34 PM) INR [0.85-1.17] 1.10 (03/14/19 9:34 PM) Potassium Lvl 3.5 mEq/L [3.5-5.1 mEq/L] (03/14/19 9:34 PM) LDL (Calculated) 96 mg/dL [<=99 mg/dL] (03/14/19 9:34 PM) Lymphocytes 15.4 % [20.0-40.0 %] *LOW* (03/14/19 9:34 PM) MCH [27.0-31.0 pg] 28.0 pg (03/14/19 9:34 PM) MCHC [32.0-36.0 32.7 g/dL g/dL] (03/14/19 9:34 PM) MCV [80.0-98.0 fL] 85.6 fL (03/14/19 9:34 PM) Monocytes [2.0-12.0 5.6 % %] (03/14/19 9:34 PM) MPV [7.4-10.4 fL] 8.5 fL (03/14/19 9:34 PM) Sodium Lvl [135-145 132 mEq/L mEq/L] *LOW* (03/14/19 9:34 PM) U Opiate Scr Negative [Negative] *NA* (03/14/19 10:57 PM) U Phencyclidine Scr Negative [Negative] *NA* (03/14/19 10:57 PM) Platelet [133-450 212 K/CMM K/CMM] (03/14/19 9:34 PM) Segs [45.0-75.0 %] 77.6 % *HI* (03/14/19 9:34 PM) Total Protein 6.8 g/dL [6.4-8.4 g/dL] (03/15/19 10:54 AM) PT [12.0-14.7 14.2 seconds seconds] (03/14/19 9:34 PM) PTT [22.9-35.8 28.2 seconds seconds] (03/14/19 9:34 PM) RBC [4.20-5.40 4.49 M/CMM M/CMM] (03/14/19 9:34 PM) RDW [11.5-14.5 %] 17.3 % *HI* (03/14/19 9:34 PM) Bili Total [0.2-1.3 0.5 mg/dL mg/dL] (03/15/19 10:54 AM) U Cannab Scr Negative [Negative] *NA* (03/14/19 10:57 PM) Trig [<=149 mg/dL] 54 mg/dL (03/14/19 9:34 PM) UA Bili [Negative] Negative *NA* (03/14/19 10:57 PM) UA Blood [Negative] Small *ABN* (03/14/19 10:57 PM) UA Color Ltyellow *NA* (03/14/19 10:57 PM) UA Glucose [Negative Negative mg/dL mg/dL] *NA* (03/14/19 10:57 PM) UA Ketones [Negative Negative mg/dL mg/dL] *NA* (03/14/19 10:57 PM) UA Leuk Est Negative [Negative] (03/14/19 10:57 PM) UA Nitrite Negative [Negative] (03/14/19 10:57 PM) UA pH [5.0-8.0] 6.0 (03/14/19 10:57 PM) UA Protein [Negative Negative mg/dL mg/dL] (03/14/19 10:57 PM) UA RBC [0-2 /HPF] 6 /HPF *HI* (03/14/19 10:57 PM) UA Spec Grav 1.009 [<=1.030] (03/14/19 10:57 PM) UA Sq Epi [Few /LPF] Few /LPF *NA* (03/14/19 10:57 PM) UA Turbidity [Clear] Clear (03/14/19 10:57 PM) UA Urobilinogen <=1.0 mg/dL [0.1-1.0 mg/dL] *NA* (03/14/19 10:57 PM) UA WBC [0-5 /HPF] 3 /HPF (03/14/19 10:57 PM) Vitamin B12 Lvl 381 pg/mL [254-1320 pg/mL] (03/14/19 9:34 PM) WBC [3.7-10.4 K/CMM] 9.3 K/CMM (03/14/19 9:34 PM) VLDL 11 *NA* (03/14/19 9:34 PM) 1Result Comment: This test was developed and its performance characteristics determined by [employer]. It has not been cleared or approved by the Food and Drug Administration. Performed At: [address] [id number] Adolfo Aeljandre MD Ph:[phone] 2Result Comment: The eGFR is calculated using the [...] from the National Kidney Disease Education Program ( NKDEP) which additionally recommends that when the eGFR is used in patients with extremes of body mass index for purposes of drug dosing, the eGFR should be mul tiplied by the estimated BMI. Immunizations No data available for this section Procedures No data available for this section Social History Social History Type Response Smoking Status Current some day smoker; Ty pe: Cigarettes; Exposure to Tobacco Smoke None; Lives with someone who smokes; Cigarett e Smoking Last 365 Days Yes; Reg Smoking Cessation Counseling No; Tobacc o use per day: 10; entered on: 03/14/19 Assessment and Plan Extracted from: Title: Clinical Document Author: Devante Franco MD Date: 03/15/19 Progress Note - Daily [facility] Completed: Feb, 20:22 by Devante Franco MD RM: CCDU - 14, SE CCDUWEEDClayton SHUKRI M58y (: 1960) F Attending: Lazaro Reyes MDPhone: Service: Internal Medicine Reason for Admission: ATAXIA Working DRG: Code status: None Specified=FULL CODECurrent diet: Isolation: No Isolation/Standard Precautions Allergies: Lovenox(Hives), penicillins(hives) SUBJECTIVE Chart reviewed and events was noted. She still has weakness of left lower limb OBJECTIVE 24hr Labs 03/15 1054 Tpvocre03.0 Total Protein6.8 Albumin Lvl3.6 Bili Total0.5 Bili Direct0.2 Bili Indirect0.3 Alk Dwvj677 AST11 ALT18 Globulin3.2 A/G Ratio1.1 03/14 2257 U Amph ScrNegative U Bianca ScrNegative U Benzodiaz ScrNegative U Cannab ScrNegative U Cocaine ScrNegative U Opiate ScrNegative U Phencyclidine ScrNegative UDS NoteSee Note UA ColorLtyellow UA TurbidityClear UA Spec Grav1.009 UA pH6.0 UA ProteinNegative UA GlucoseNegative UA KetonesNegative UA BiliNegative UA BloodSmall UA Urobilinogen<=1.0 UA NitriteNegative UA Leuk EstNegative UA RBC6 H UA WBC3 UA Sq EpiFew 03/14 2134 Glucose Nvr662 H BUN7 Creatinine Lvl0.50 Sodium Xfh016 L Potassium Lvl3.5 Chloride Jzb460 CO224 AGAP8.5 L Calcium Lvl8.7 gGOH897 Rkkp339 Trig54 HDL89 LDL (Calculated)96 VLDL11 CHD Risk2.20 L Hgb A1C6.0 H TSH0.735 Vitamin B12 Gdd313 WBC9.3 RBC4.49 Hgb12.6 Hct38.4 MCV85.6 MCH28.0 MCHC32.7 RDW17.3 H Zjskgjzo151 MPV8.5 Segs77.6 H Monocytes5.6 Nphescgjslt10.4 L Eosinophils0.6 Basophils0.8 Neutrophils #7.2 Lymphocytes #1.4 Monocytes #0.5 Eosinophils #0.1 Basophils #0.1 PT14.2 INR1.10 PTT28.2 Martinez still necessary (Yes/No): Line still necessary (Yes/No): VitalsTmp(F)FculjEVGPEyT9AJB6 03/15 16:2898.116908/950739--- 03/15 11:1897.662851/9666268--- 03/15 07:3198.413015/830114--- 03/15 04:0098.962421/78--99--- 03/15 00:0097.735650/74--97--- 24 Hr Tmax: 98.7F (37.06c) at 03/15 16:2 8Vital Signs are the last 5 in the past 48 hours. DateWt(kg)Wt(lb)Ht(cm)Ht(in)Method 03/14 (initial) 52.27 115.17710.02 63.00 Estimated I&ORecordInOutBal 02/2123hr Tot 11 0 11 02/2023hr Tot 10 0 10 NECK: Supple. No [...] and symmetric. Plantar reflex is downgoing. Coordination: Xfhfyu-kg-sgca is normal. Gait: She needs a cane [...] of lumbar spine Folate, TSH, THIAMIN Extracted from: Title: History and Physical Author: Sarita Martin MD [...]
== END 2019-09-23 18:00 | disposition home or self-care (01) ==
LOC: ER 11:52
DX: T40.691A Poisoning by other narcotics, accidental (unintentional), initial encounter (principal); J44.9 Chronic obstructive pulmonary disease, unspecified; Z95.810 Presence of automatic (implantable) cardiac defibrillator; F17.210 Nicotine dependence, cigarettes, uncomplicated
CPT/HCPCS: 36415; 36600; 70450; 71045; 80053; 80307; 80320; 80329 ×2; 82550; 82553; 82805; 84484; 85025; 93005; 99284; J2310